=== PATIENT | female | born 1960 | race Caucasian/White ===

== ENCOUNTER 2017-05-23 15:26 | Outpatient (CLI) | payer BC | END 2017-05-23 15:27 | disposition critical access hospital (66) | LOC: EMS 15:26 | PROVIDERS: ATTEND Surgery | DX: R50.9 Fever, unspecified (principal); G82.50 Quadriplegia, unspecified | CPT/HCPCS: A0425; A0429 ==

== ENCOUNTER 2017-05-23 16:01 | Inpatient (IN) | payer BC ==
[2017-05-23 17:16] LABS: BILIRUBIN,URINE NEGATIVE (NEGATIVE); GLUCOSE, URINE (UA) NEGATIVE (NEGATIVE); KETONES,URINE (UA) NEGATIVE (NEGATIVE); LEUKOCYTE ESTERASE, URINE LARGE (NEGATIVE); NITRITE,URINE NEGATIVE (NEGATIVE); OCCULT BLOOD,URINE LARGE (NEGATIVE); PROTEIN,URINE 30 mg/dL (NEGATIVE); UROBILINOGEN,URINE 0.2 (NORMAL) E.U./dL (NORMAL)
[2017-05-23 17:22] LABS: CLARITY,URINE CLOUDY (CLEAR)
[2017-05-23 17:25] LABS: SQUAMOUS EPITHELIAL CELL,UR FEW Squamous (<= Few)
[2017-05-23 17:26] LABS: BACTERIA,URINE Many /HPF (None Seen); CASTS, URINE 3-5 RBC Casts /LPF
[2017-05-23] MEDS ORDERED: ONDANSETRON 4 MG/2 ML VIAL IVP STA (17:27)
[2017-05-23] MEDS ORDERED: cefTRIAXone 1 GM in SODIUM CHLORIDE 0.9% MINIBAG 100 ML IV STA (17:27)
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
[2017-05-23 17:31] LABS: BASOPHILS % (AUTO) 0.2 %; EOSINOPHILS % (AUTO) 0.2 %; HGB - HEMOGLOBIN 10.1 g/dL (12.0-16.0); LYMPHOCYTES % (AUTO) 5.4 %; MEAN CORPUSCULAR HEMOGLOBIN 30.5 pg (27.0-31.0); MEAN CORPUSCULAR HGB CONC 33.9 g/dL (32.0-36.0); MEAN CORPUSCULAR VOLUME 89.8 fL (81.0-99.0); MEAN PLATELET VOLUME 9.2 fL (7.9-10.8); MONOCYTES % (AUTO) 5.3 %; NEUTROPHILS % (AUTO) 88.9 %; PLT - PLATELET COUNT 169 10^3/uL (130-450); RED CELL DISTRIBUTION WIDTH 14.3 % (12.0-15.0)
[2017-05-23] MEDS: SODIUM CHLORIDE 0.9% 1,000 ML IV ONE ×2 (17:40→20:09)
[2017-05-23 17:51] LABS: ALBUMIN 2.8 g/dL (3.2-5.5); ALBUMIN/GLOBULIN RATIO 0.8 (1.0-2.2); BILIRUBIN,TOTAL 1.5 mg/dL (0.2-1.0); CALCIUM 8.2 mg/dL (8.5-10.3); TOTAL PROTEIN 6.1 g/dL (6.7-8.2)
[2017-05-23] MEDS ORDERED: PANTOPRAZOLE 40 MG VIAL IVP STA (17:58)
[2017-05-23] MEDS ORDERED: SODIUM CHLORIDE FLUSH 0.9% 10 ML SYRINGE IVP PRN (18:03)
[2017-05-23] MEDS ORDERED: HEPARIN 5,000 UNIT/ML VIAL SUBQ SCH (21:00)
[2017-05-23] MEDS: SODIUM CHLORIDE FLUSH 0.9% 10 ML SYRINGE IVP SCH (21:21)
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
[2017-05-23] MEDS: cefTAZidime 2 GM in SODIUM CHLORIDE 0.9% MINIBAG 100 ML IV SCH (22:53)
[2017-05-23] MEDS: SODIUM CHLORIDE 1 GM TABLET PO SCH (22:53)
[2017-05-24] MEDS: NS W/20 MEQ KCL 1,000 ML IV SCH ×3 (02:13→21:08)
[2017-05-24] MEDS: SODIUM CHLORIDE 1 GM TABLET PO SCH ×3 (05:45→22:10)
[2017-05-24] MEDS: SODIUM CHLORIDE FLUSH 0.9% 10 ML SYRINGE IVP SCH ×4 (05:46→21:08)
[2017-05-24 06:38] LABS: BASOPHILS % (AUTO) 0.1 %; EOSINOPHILS # (AUTO) 0.1 10^3/uL (0.0-0.7); EOSINOPHILS % (AUTO) 0.6 %; HGB - HEMOGLOBIN 8.2 g/dL (12.0-16.0); LYMPHOCYTES # (AUTO) 0.7 10^3/uL (1.5-3.5); LYMPHOCYTES % (AUTO) 5.2 %; MEAN CORPUSCULAR HEMOGLOBIN 30.2 pg (27.0-31.0); MEAN CORPUSCULAR HGB CONC 33.2 g/dL (32.0-36.0); MEAN CORPUSCULAR VOLUME 91.2 fL (81.0-99.0); MEAN PLATELET VOLUME 8.8 fL (7.9-10.8); MONOCYTES # (AUTO) 0.9 10^3/uL (0.0-1.0); MONOCYTES % (AUTO) 6.4 %; NEUTROPHILS # (AUTO) 12.1 10^3/uL (1.5-6.6); NEUTROPHILS % (AUTO) 87.7 %; PLT - PLATELET COUNT 158 10^3/uL (130-450); RED BLOOD COUNT 2.72 10^6/uL (4.20-5.40); RED CELL DISTRIBUTION WIDTH 14.7 % (12.0-15.0); WHITE BLOOD COUNT 13.8 x10^3/uL (4.8-10.8)
[2017-05-24 06:52] LABS: ALBUMIN 2.5 g/dL (3.2-5.5); ALBUMIN/GLOBULIN RATIO 0.9 (1.0-2.2); BILIRUBIN,TOTAL 1.1 mg/dL (0.2-1.0); CALCIUM 8.1 mg/dL (8.5-10.3); CREATININE 1.9 mg/dL (0.4-1.0); MAGNESIUM 1.6 mg/dL (1.7-2.8); PHOSPHORUS 2.4 mg/dL (2.5-4.6); TOTAL PROTEIN 5.3 g/dL (6.7-8.2)
[2017-05-24] MEDS ORDERED: FAMOTIDINE 20 MG TABLET PO SCH (09:00)
[2017-05-24] MEDS ORDERED: POLYETHYLENE GLYCOL 3350 17 GM PACKET PO SCH ×2 (09:00)
[2017-05-24] MEDS: cefTAZidime 2 GM in SODIUM CHLORIDE 0.9% MINIBAG 100 ML IV SCH ×2 (09:39→22:10)
[2017-05-24] MEDS ORDERED: IOPAMIDOL-300 50 ML VIAL ONE (10:20)
[2017-05-24 10:50] LABS: INR 1.2 (0.8-1.2); PT - PROTHROMBIN TIME 13.1 secs (9.9-12.6)
[2017-05-24] MEDS: NYSTATIN CREAM 15 GM TUBE TOP SCH ×2 (11:07→20:55)
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
[2017-05-24] MEDS ORDERED: PANTOPRAZOLE 80 MG in SODIUM CHLORIDE 0.9% 100ML 100 ML IV ONE (12:50)
[2017-05-24] MEDS ORDERED: PANTOPRAZOLE 80 MG in SODIUM CHLORIDE 0.9% 100ML 100 ML IV SCH (13:13)
[2017-05-24 13:38] LABS: HGB - HEMOGLOBIN 8.9 g/dL (12.0-16.0)
[2017-05-24] MEDS ORDERED: SODIUM CHLORIDE 0.9% 500 ML IV ONE (14:00)
--- NOTE | 2017-05-24 14:11 | CT Report ---
EXAM: CT ABDOMEN AND PELVIS IV CONTRAST EXAM DATE: 05/24/2017. CLINICAL HISTORY: Abdominal pain. Elevated liver function tests. Maroon stools. COMPARISONS: None. TECHNIQUE: Routine helical CT imaging was performed through the abdomen and pelvis. IV contrast: None . Enteric contrast: None. Reconstructions: Coronal and sagittal. In accordance with CT protocol optimization, one or more of the following dose reduction techniques w ere utilized for this exam: automated exposure control, adjustment of mA and/or KV based on patient s ize, or use of iterative reconstructive technique. FINDINGS: Lung Bases: Fluid opacities with air bronchograms in the right middle lobe, in the left lower lobe, a nkle fluid opacities in the right lower lobe. Small bilateral pleural effusions. No pericardial effus ion. Liver: Normal. No masses. Gallbladder/Bile Ducts: Not visualized. No bile duct dilatation. Spleen: Normal. Pancreas: Normal. Adrenal Glands: Normal. Kidneys: Left kidney is slightly enlarged and there is infiltration of the left perirenal fat. There is also edema adjacent to the proximal left ureter. No urinary tract dilatation. No calculi demonstra silvano. Peritoneal Cavity/Bowel: No bowel dilatation. Mild infiltration of the fat adjacent to the splenic fl exure. Small amount of fluid in the left paracolic gutter extending into the left pelvis. The appendi x appears normal. No adenopathy. No free air. Pelvic Organs: Catheter in nondistended urinary bladder. Small amount of gas in the bladder for the p resence of the catheter. The uterus is normal in size. No adenopathy. Vasculature: Minimal atherosclerosis of the left common iliac artery. Otherwise normal. Bones: Degenerative changes of the spine. Bridging osteophytes at multiple levels of the lower thorac ic and lumbar spine consistent with diffuse idiopathic skeletal hypertrophy. 17 mm bone island in the left sacrum. Intramedullary abhishek in the proximal femur bilaterally. IMPRESSION: Bilateral lower lung infiltrates, most likely pneumonia. Small bilateral pleural effusions. Enlarged left kidney with edema adjacent to the kidney and proximal left ureter. Findings could be se condary to a recently passed ureteral calculus or pyelonephritis. Infiltration of the fat adjacent to the splenic flexure of the colon and small amount of fluid in the left paracolic gutter which could be secondary to colonic inflammatory disease. The gallbladder is either markedly collapsed or absent. Pastor catheter in the urinary bladder. Other findings as described in the report. [facility] Referring Provider Line: [phone] SITE ID: [id number]
--- NOTE | 2017-05-24 15:45 | XRAY Preliminary Report ---
Exam: XR CHEST 2 VIEW PA/LAT IMPRESSION: Small bilateral pleural effusions and moderate bibasilar atelectasis. Mild cardiomegaly. [facility] SITE ID: [id number]
--- NOTE | 2017-05-24 15:48 | XRAY Report ---
EXAM: CHEST RADIOGRAPHY EXAM DATE: 05/24/2017 01:11 PM. CLINICAL HISTORY: Weakness, anemia. COMPARISON: Limited comparison made with abdomen CT from today. TECHNIQUE: 2 views. FINDINGS: Lungs/Pleura: Respiratory motion artifact degrades lateral view. Moderate bibasilar atelectasis. Smal l bilateral pleural effusions. No pneumothorax Mediastinum: Mild cardiomegaly. Other: Moderate degenerative disk disease of the thoracolumbar spine IMPRESSION: Small bilateral pleural effusions and moderate bibasilar atelectasis. Mild cardiomegaly. [facility] Referring Provider Line: [phone] SITE ID: [id number]
--- NOTE | 2017-05-24 17:48 | PROVIDER PROGRESS NOTE ---
Assessment/Plan - Problem List (1) Dehydration Assessment/Plan: Oral mucosa moist but BP was low intermittently today and Pt got a fluid bolus of 500cc NS Continuue to monitor electrolytes, Mg and VS (2) Hyponatremia Assessment/Plan: Pt on iv D5NS with K and rate increased to 125/hr plus got a saline 500 cc bolus , plus getting salt tablets po She is less confused, as per the description in ED Continue to follow Labs Echo ordered and still pending to eval LVEF for CHF. Given low Na and pedal edema, she may have a low LVEF (3) GI bleeding Qualifiers: GI bleed type/associated pathology: unspecified gastrointestinal hemorrhage type Qualified Code(s): K92.2 - Gastrointestinal hemorrhage, unspecified Assessment/Plan: After 1-2 large maroon stools, no further BMs. Hgb dropped from 10 to 8 then kiersten to 8.9 Will have blood available, ordered a cross-match, reday for a transfusion if needed PPI ordered, sq Heparin stopped Liquid diet started in preparation for EGD Dr Gabriel saw Pt for EGD and possible colonoscopy, but awaiting colonoscopy report from 2 years ago at another facility (4) Urinary tract infection Qualifiers: Urinary tract infection type: catheter-associated UTI Indwelling urinary catheter type: indwelling urethral catheter Encounter type: initial encounter Qualified Code(s): T83.511A - Infection and inflammatory reaction due to indwelling urethral catheter, initial encounter; N39.0 - Urinary tract infection , site not specified; N39.0 - Urinary tract infection, site not specified Assessment/Plan: No growth on urine culture yet Pt on empiric iv antibiotics Continue present plan (5) Quadriplegia, C5-C7 incomplete Assessment/Plan: Stable neuro status for 40 years, requires a chronic indwelling urinary bladder catheter - Current Meds Current Meds: Current Medications Generic Name Dose Route Start Last Admin Trade Name Freq PRN Reason Stop Dose Admin Ceftazidime 2 gm/ Sodium 100 mls @ 100 mls/hr 05/23/17 22:00 05/24/17 11:07 Chloride IV Infused Q12H AMY Infusion Potassium Chloride/Sodium Chloride 1,000 mls @ 125 mls/hr 05/23/17 23:00 14:42 Normal Saline 0.9% W/20 Meq Kcl IV 125 mls/hr .Q8H AMY Administration Nystatin 1 applic 05/24/17 09:00 05/24/17 11:07 Mycostatin Cream TOP Not Given BID AMY Sodium Chloride 1 gm 05/23/17 22:00 05/24/17 13:49 Salt Tab PO 1 gm TID AMY Administration Sodium Chloride 10 ml 05/24/17 06:00 05/24/17 13:26 Normal Saline Flush 0.9% IVP 10 ml Q8HR AMY Administration - Lab Result Fish Bone Diagrams: 05/24/17 13:10 05/24/17 06:18 - Additional Planning My Orders: My Active Orders 05/24/17 RBC, LEUKOREDUCED Routine TYPE AND SCREEN Routine 05/24/17 06:18 HEPATITIS ACUTE PANEL W CONF [REFLAB] Routine 05/24/17 21:00 Pantoprazole [Protonix] 40 mg IV BID 05/24/17 Dinner DIET [Clear Liquid Diet] [DIET] 05/25/17 05:00 BMP - BASIC METABOLIC PANEL [CHEM] DAILYLAB CBC - COMP BLD CT W/AUTO DIFF [HEME] DAILYLAB LIVER PANEL [CHEM] DAILYLAB MAGNESIUM [CHEM] DAILYLAB Subjective - Subjective Patient Reports: Feeling Better, Resting Comfortably, No Complaints Objective Vital Signs: Vital Signs - 24 hr 05/23/17 05/23/17 05/24/17 18:15 20:42 00:24 Temperature 36.8 C 37.4 C Heart Rate 82 Heart Rate [ 76 80 Brachial] Respiratory 20 24 22 Rate Blood Pressure 104/66 Blood Pressure 165/89 H 138/85 H [Left Brachial artery] O2 Saturation 100 98 100 05/24/17 05/24/17 05/24/17 07:55 14:00 16:11 Temperature 37.6 C H 37.1 C 37.6 C H Heart Rate Heart Rate [ 86 73 72 Brachial] Respiratory 14 18 19 Rate Blood Pressure Blood Pressure 95/46 L 108/38 L 96/42 L [Left Brachial artery] O2 Saturation 96 97 95 Oxygen O2 Source Room air I&O (Last 24 Hrs): Intake and Output Totals x24h 05/22/17 05/23/17 05/24/17 23:59 23:59 23:59 Intake Total 1100 3590 Output Total 200 2250 Balance 900 1340 General: Alert, Oriented x3 HEENT: Mucous membr. moist/pink Neck: Supple, No JVD Neuro: Other (Quadriplegic from axillae down) Abdomen: Soft Extremities: Other (1+ pedal edema) - Results Results: Laboratory Results WBC 13.8 x10^3/uL (4.8-10.8) H 05/24/17 06:18 RBC 2.72 10^6/uL (4.20-5.40) L 05/24/17 06:18 Hgb 8.9 g/dL (12.0-16.0) L 05/24/17 13:10 Hct 25.9 % (37.0-47.0) L 05/24/17 13:10 MCV 91.2 fL (81.0-99.0) 05/24/17 06:18 MCH 30.2 pg (27.0-31.0) 05/24/17 06:18 MCHC 33.2 g/dL (32.0-36.0) 05/24/17 06:18 RDW 14.7 % (12.0-15.0) 05/24/17 06:18 Plt Count 158 10^3/uL (130-450) 05/24/17 06:18 MPV 8.8 fL (7.9-10.8) 05/24/17 06:18 Neut # 12.1 10^3/uL (1.5-6.6) H 05/24/17 06:18 Lymph # 0.7 10^3/uL (1.5-3.5) L 05/24/17 06:18 [place] # 0.9 10^3/uL (0.0-1.0) 05/24/17 06:18 Eos # 0.1 10^3/uL (0.0-0.7) 05/24/17 06:18 Baso # 0.0 10^3/uL (0.0-0.1) 05/24/17 06:18 Absolute Nucleated RBC 0.00 x10^3/uL 05/24/17 06:18 Nucleated RBC % 0.0 /100WBC 05/24/17 06:18 PT 13.1 secs (9.9-12.6) H 05/24/17 10:37 INR 1.2 (0.8-1.2) 05/24/17 10:37 Sodium 125 mmol/L (135-145) L 05/24/17 06:18 Potassium 3.6 mmol/L (3.5-5.0) 05/24/17 06:18 Chloride 93 mmol/L (101-111) L 05/24/17 06:18 Carbon Dioxide 21 mmol/L (21-32) 05/24/17 06:18 Anion Gap 11.0 (6-13) 05/24/17 06:18 BUN 60 mg/dL (6-20) H 05/24/17 06:18 Creatinine 1.9 mg/dL (0.4-1.0) H 05/24/17 06:18 Estimated GFR (MDRD) 27 (>89) L 05/24/17 06:18 Glucose 105 mg/dL (70-100) H 05/24/17 06:18 Calcium 8.1 mg/dL (8.5-10.3) L 05/24/17 06:18 Phosphorus 2.4 mg/dL (2.5-4.6) L 05/24/17 06:18 Magnesium 1.6 mg/dL (1.7-2.8) L 05/24/17 06:18 Total Bilirubin 1.1 mg/dL (0.2-1.0) H 05/24/17 06:18 AST 102 IU/L (10-42) H 05/24/17 06:18 ALT 65 IU/L (10-60) H 05/24/17 06:18 Alkaline Phosphatase 82 IU/L (42-121) 05/24/17 06:18 Troponin I 0.09 ng/mL (<0.49) 05/23/17 17:03 Total Protein 5.3 g/dL (6.7-8.2) L 05/24/17 06:18 Albumin 2.5 g/dL (3.2-5.5) L 05/24/17 06:18 Globulin 2.8 g/dL (2.1-4.2) 05/24/17 06:18 Albumin/Globulin Ratio 0.9 (1.0-2.2) L 05/24/17 06:18 Lipase 11 U/L (22-51) L 05/23/17 17:03 Urine Color YELLOW 05/23/17 17:05 Urine Clarity CLOUDY (CLEAR) 05/23/17 17:05 Urine pH 6.0 PH (5.0-7.5) 05/23/17 17:05 Ur Specific [place] 1.010 (1.002-1.030) 05/23/17 17:05 Urine Protein 30 mg/dL (NEGATIVE) H 05/23/17 17:05 Urine Glucose (UA) NEGATIVE mg/dL (NEGATIVE) 05/23/17 17:05 Urine Ketones NEGATIVE mg/dL (NEGATIVE) 05/23/17 17:05 Urine Occult Blood LARGE (NEGATIVE) H 05/23/17 17:05 Urine Nitrite NEGATIVE (NEGATIVE) 05/23/17 17:05 Urine Bilirubin NEGATIVE (NEGATIVE) 05/23/17 17:05 Urine Urobilinogen 0.2 (NORMAL) E.U./dL (NORMAL) 05/23/17 17:05 Ur Leukocyte Esterase LARGE (NEGATIVE) H 05/23/17 17:05 Urine RBC 11-25 /HPF (0-5) H 05/23/17 17:05 Urine WBC >25 /HPF (0-5) H 05/23/17 17:05 Ur Squamous Epith Cells FEW Squamous (<= Few) 05/23/17 17:05 Urine Bacteria Many /HPF (None Seen) H 05/23/17 17:05 Urine Casts 3-5 RBC Casts /LPF 05/23/17 17:05 Ur Microscopic Review INDICATED 05/23/17 17:05 Urine Culture Comments INDICATED 05/23/17 17:05 Blood Type O POSITIVE 05/23/17 17:03 Blood Type Recheck O POSITIVE 05/24/17 11:05 Antibody Screen NEGATIVE 05/23/17 17:03 Crossmatch IS Only See Detail 05/23/17 17:03
[2017-05-24] MEDS: PANTOPRAZOLE 40 MG VIAL IV SCH (21:08)
[2017-05-24] MEDS: SODIUM CHLORIDE FLUSH 0.9% 10 ML SYRINGE IVP PRN (21:08)
[2017-05-24] MEDS: ACETAMINOPHEN 325 MG TABLET PO PRN (23:47)
[2017-05-24] MEDS: TEMAZEPAM 15 MG CAPSULE PO PRN (23:47)
[2017-05-25] MEDS: NS W/20 MEQ KCL 1,000 ML IV SCH ×2 (05:13→08:29)
[2017-05-25 06:03] LABS: BASOPHILS % (AUTO) 0.1 %; EOSINOPHILS % (AUTO) 0.5 %; HGB - HEMOGLOBIN 7.8 g/dL (12.0-16.0); LYMPHOCYTES # (AUTO) 1.2 10^3/uL (1.5-3.5); LYMPHOCYTES % (AUTO) 13.5 %; MEAN CORPUSCULAR HEMOGLOBIN 30.5 pg (27.0-31.0); MEAN CORPUSCULAR HGB CONC 33.6 g/dL (32.0-36.0); MEAN PLATELET VOLUME 8.6 fL (7.9-10.8); MONOCYTES # (AUTO) 0.8 10^3/uL (0.0-1.0); NEUTROPHILS # (AUTO) 6.6 10^3/uL (1.5-6.6); NEUTROPHILS % (AUTO) 76.9 %; PLT - PLATELET COUNT 151 10^3/uL (130-450); RED BLOOD COUNT 2.55 10^6/uL (4.20-5.40); RED CELL DISTRIBUTION WIDTH 14.9 % (12.0-15.0); WHITE BLOOD COUNT 8.6 x10^3/uL (4.8-10.8)
[2017-05-25 06:21] LABS: ALBUMIN 2.3 g/dL (3.2-5.5); BILIRUBIN,DIRECT 0.2 mg/dL (0.1-0.5); BILIRUBIN,TOTAL 0.7 mg/dL (0.2-1.0); CALCIUM 7.9 mg/dL (8.5-10.3); CREATININE 1.3 mg/dL (0.4-1.0); TOTAL PROTEIN 5.3 g/dL (6.7-8.2)
[2017-05-25] MEDS: SODIUM CHLORIDE 1 GM TABLET PO SCH ×2 (06:40→06:41)
[2017-05-25] MEDS: SODIUM CHLORIDE FLUSH 0.9% 10 ML SYRINGE IVP SCH ×3 (06:41→22:35)
[2017-05-25] MEDS: PANTOPRAZOLE 40 MG VIAL IV SCH ×2 (08:47→22:31)
[2017-05-25] MEDS: NYSTATIN CREAM 15 GM TUBE TOP SCH ×2 (08:48→22:25)
[2017-05-25] MEDS: SODIUM CHLORIDE FLUSH 0.9% 10 ML SYRINGE IVP PRN (08:54)
[2017-05-25] MEDS ORDERED: SODIUM CHLORIDE 0.9% 500 ML IV ONE (09:09)
[2017-05-25] MEDS: cefTAZidime 2 GM in SODIUM CHLORIDE 0.9% MINIBAG 100 ML IV SCH ×2 (11:29→22:24)
--- NOTE | 2017-05-25 13:37 | PROVIDER PROGRESS NOTE ---
Subjective - General Admit Date: 05/23/17 Procedure Date: 05/26/17 Post Op Days: 1 Procedure Performed: Planned EGD and colonoscopy. - Review of Systems General: positive: No symptoms HEENT: positive: No symptoms Pulmonary: positive: No symptoms Cardiovascular: positive: No symptoms Gastrointestinal: positive: No symptoms Genitourinary: positive: No symptoms Musculoskeletal: positive: Other (Qadriplegic with limited use of her arms L>R) Skin: positive: No symptoms Psychiatric: positive: No symptoms All Other Systems: positive: Reviewed and negative Objective - Patient Data Reviewed Vital Signs: Yes Vital Signs: Vital Signs x48h Temp Pulse Pulse Resp BP BP Pulse Ox 05/25/17 12:30 18 102/60 94 05/25/17 11:20 36.7 C 72 18 108/80 05/25/17 10:09 36.5 C 72 26 H 96/54 L 05/25/17 09:46 36.7 C 71 18 104/58 L 05/25/17 09:19 36.7 C 72 28 H 98/71 05/25/17 09:00 72 16 97/60 96 Weight: Weight 05/23/17 05/24/17 05/25/17 23:59 23:59 23:59 Weight (kg) 97.5 kg Intake & Output: Intake and Output Totals x24h 05/23/17 05/24/17 05/25/17 23:59 23:59 23:59 Intake Total 1100 4844.167 2902.75 Output Total 200 3150 1550 Balance 900 9451.297 3719.75 - Lab Results Lab Results: 05/25/17 05:49 05/25/17 05:49 Other Lab Results: Lab Results x24hrs 05/25/17 05/25/17 05/24/17 Range/Units 05:49 05:49 13:10 WBC 8.6 (4.8-10.8) x10^3/uL RBC 2.55 L (4.20-5.40) 10^6/uL Hgb 7.8 L 8.9 L (12.0-16.0) g/dL Hct 23.2 L 25.9 L (37.0-47.0) % MCV 91.0 (81.0-99.0) fL MCH 30.5 (27.0-31.0) pg MCHC 33.6 (32.0-36.0) g/dL RDW 14.9 (12.0-15.0) % Plt Count 151 (130-450) 10^3/uL MPV 8.6 (7.9-10.8) fL Neut # 6.6 (1.5-6.6) 10^3/uL Lymph # 1.2 L (1.5-3.5) 10^3/uL [place] # 0.8 (0.0-1.0) 10^3/uL Eos # 0.0 (0.0-0.7) 10^3/uL Baso # 0.0 (0.0-0.1) 10^3/uL Absolute Nucleated RBC 0.00 x10^3/uL Nucleated RBC % 0.0 /100WBC Sodium 137 (135-145) mmol/L Potassium 3.5 (3.5-5.0) mmol/L Chloride 111 (101-111) mmol/L Carbon Dioxide 21 (21-32) mmol/L Anion Gap 5.0 L (6-13) BUN 39 H (6-20) mg/dL Creatinine 1.3 H (0.4-1.0) mg/dL Estimated GFR (MDRD) 42 L (>89) Glucose 95 (70-100) mg/dL Calcium 7.9 L (8.5-10.3) mg/dL Magnesium 2.0 (1.7-2.8) mg/dL Total Bilirubin 0.7 (0.2-1.0) mg/dL Direct Bilirubin 0.2 (0.1-0.5) mg/dL AST 49 H (10-42) IU/L ALT 48 (10-60) IU/L Alkaline Phosphatase 82 (42-121) IU/L Total Protein 5.3 L (6.7-8.2) g/dL Albumin 2.3 L (3.2-5.5) g/dL Globulin 3.0 (2.1-4.2) g/dL - Current Medications Current Medications: Current Medications Generic Name Dose Route Start Last Admin Trade Name Freq PRN Reason Stop Dose Admin Acetaminophen 650 mg 05/23/17 18:03 05/24/17 23:47 Tylenol PO 650 mg Q4HR PRN Administration Pain 1 to 4 Ceftazidime 2 gm/ Sodium 100 mls @ 100 mls/hr 05/23/17 22:00 05/25/17 12:29 Chloride IV Infused Q12H AMY Infusion Potassium Chloride/Sodium Chloride 1,000 mls @ 75 mls/hr 05/25/17 08:02 05/25 09:20 Normal Saline 0.9% W/20 Meq Kcl IV 0 mls/hr .[id number] AMY Infusion Nystatin 1 applic 05/24/17 09:00 05/25/17 08:48 Mycostatin Cream TOP 1 applic BID AMY Administration Pantoprazole Sodium 40 mg 05/24/17 21:00 05/25/17 08:47 Protonix IV 40 mg BID AMY Administration Sodium Chloride 10 ml 05/24/17 05:48 05/25/17 08:54 Normal Saline Flush 0.9% IVP 10 ml PRN PRN Administration NEEDED PER PROVIDER ORDERS Sodium Chloride 10 ml 05/24/17 06:00 05/25/17 11:31 Normal Saline Flush 0.9% IVP 10 ml Q8HR AMY Administration Temazepam 15 mg 05/24/17 23:32 05/24/17 23:47 Restoril PO 15 mg QPM PRN Administration Insomnia - Physical Exam General Appearance: positive: No acute distress Eyes Bilateral: positive: No lid inflammation, Conjunctivae nml, No scleral icterus Neck: positive: Trachea midline Respiratory: positive: Chest non-tender, No respiratory distress, Breath sounds nml Cardiovascular: positive: Regular rate & rhythm Abdomen: positive: Non-tender (Again patient does not feel abdominal pain usually.) Skin: positive: Color nml Extremities: positive: Other (Flacid lower extremities.) Neurologic/Psychiatric: positive: Oriented x3 Impression/Plan - Problem List Problem List: Anemia secondary to gastrointestinal bleeding Esophagogastroduodenoscopy and colonoscopy with possible biopsies and/or polypectomies. Indications, procedure, alternatives (such as barium studies ( upper or lower), Cologuard (lower) and even no procedure at all) and risks including but not limited to perforation requiring operative repair, bleeding with its risks, and were fully explained to her. Conscious sedation was discussed at length with her as were its risks including but not limited to loss of airway, aspiration, respiratory depression, and not enough relief of pain and anxiety and she indicated that she wished to have conscious sedation for her procedure. I explained that her posterior oropharynx would also be anesthetized for the procedure. I explained that MAC anesthesia is associated with a higher incidence of intestinal perforation. Review of her history does not reveal any significant systemic disease that would contraindicate use of conscious sedation or MAC anesthesia. All questions were fully answered. Verbal and written consent was obtained. The patient in preparation for her esophagogastroduodenoscopy and colonoscopy will be n.p.o. and her colon will be mechanically prepped. 45 minutes of [id number] time spent with the patient the majority of which was spent in discussion
--- NOTE | 2017-05-25 14:47 | PROVIDER PROGRESS NOTE ---
Assessment/Plan - Problem List (1) Dehydration Assessment/Plan: Improving electrolytes BP dropped but with a drop in H/H, she is probably no longer dehydrated but needs blood transfusion (2) Hyponatremia Assessment/Plan: Resolved. Will stop po salt tablets (3) GI bleeding Qualifiers: GI bleed type/associated pathology: unspecified gastrointestinal hemorrhage type Qualified Code(s): K92.2 - Gastrointestinal hemorrhage, unspecified Assessment/Plan: Further drip on H/H today along with postural hypotension, requiring trandelenburg bed position for several hours No large bloody BM today, but probable further GI bleeding Will transfuse 2U PRBCs and recheck H/H later today along with daily am CBC checks No colonoscopy report was obtained from [facility]. Dr Gabriel saw Pt today and is planning EGD and colonoscopy tomorrow. (4) Urinary tract infection Qualifiers: Urinary tract infection type: catheter-associated UTI Indwelling urinary catheter type: indwelling urethral catheter Encounter type: initial encounter Qualified Code(s): T83.511A - Infection and inflammatory reaction due to indwelling urethral catheter, initial encounter; N39.0 - Urinary tract infection , site not specified; N39.0 - Urinary tract infection, site not specified Assessment/Plan: Pt had a fever, Tylenol given Continue iv antibiotics for UTI Await cultures (5) Quadriplegia, C5-C7 incomplete Assessment/Plan: Stable (6) Fall Assessment/Plan: Pt cannot feel any pain below axillae Will XRay both knees for traumatic fracture or dislocation, etc - Current Meds Current Meds: Current Medications Generic Name Dose Route Start Last Admin Trade Name Freq PRN Reason Stop Dose Admin Acetaminophen 650 mg 05/23/17 18:03 05/24/17 23:47 Tylenol PO 650 mg Q4HR PRN Administration Pain 1 to 4 Ceftazidime 2 gm/ Sodium 100 mls @ 100 mls/hr 05/23/17 22:00 05/25/17 12:29 Chloride IV Infused Q12H AMY Infusion Potassium Chloride/Sodium Chloride 1,000 mls @ 75 mls/hr 05/25/17 08:02 05/25 09:20 Normal Saline 0.9% W/20 Meq Kcl IV 0 mls/hr .[id number] AMY Infusion Nystatin 1 applic 05/24/17 09:00 05/25/17 08:48 Mycostatin Cream TOP 1 applic BID AMY Administration Pantoprazole Sodium 40 mg 05/24/17 21:00 05/25/17 08:47 Protonix IV 40 mg BID AMY Administration Sodium Chloride 10 ml 05/24/17 05:48 05/25/17 08:54 Normal Saline Flush 0.9% IVP 10 ml PRN PRN Administration NEEDED PER PROVIDER ORDERS Sodium Chloride 10 ml 05/24/17 06:00 05/25/17 11:31 Normal Saline Flush 0.9% IVP 10 ml Q8HR AMY Administration Temazepam 15 mg 05/24/17 23:32 05/24/17 23:47 Restoril PO 15 mg QPM PRN Administration Insomnia - Lab Result Fish Bone Diagrams: 05/25/17 05:49 05/25/17 05:49 - Additional Planning My Orders: My Active Orders 05/24/17 17:57 Nutrition Consult [CONS] Routine 05/24/17 21:00 Pantoprazole [Protonix] 40 mg IV BID 05/24/17 Dinner DIET [Clear Liquid Diet] [DIET] 05/25/17 Knee 2 View BILAT [XR] Routine 05/25/17 07:57 Transfuse RBCs Leukoreduced [RC] .ONCE 05/25/17 08:02 Ns W/20 Meq KCl [Normal Saline 0.9% W/20 Meq KCl] 1,000 ml IV 75 mls/hr 05/25/17 18:00 HEMOGLOBIN AND HEMATOCRIT [HEME] Timed 05/26/17 05:00 BMP - BASIC METABOLIC PANEL [CHEM] DAILYLAB CBC - COMP BLD CT W/AUTO DIFF [HEME] DAILYLAB Subjective - Subjective Patient Reports: Feeling Better, Other (Pt remembers that she fell out of her wheelchair while in the shower and landed on her knees 1 week ago, caregiver lifted her up and there was no bruising, but she never had Xrays to check for fracture, etc.) Nursing Reports: Other (This am, when HOB elevated, BP dropped to 70's and Pt felt groggy w/ alot of yawning) Objective Vital Signs: Vital Signs - 24 hr 05/24/17 05/24/17 05/25/17 16:11 23:27 02:08 Temperature 37.6 C H 38.0 C H 37.1 C Heart Rate Heart Rate [ 72 94 Brachial] Respiratory 19 20 Rate Blood Pressure Blood Pressure 96/42 L 118/78 [Left Brachial artery] O2 Saturation 95 96 05/25/17 05/25/17 05/25/17 09:00 09:19 09:46 Temperature 36.7 C 36.7 C Heart Rate 72 71 Heart Rate [ 72 Brachial] Respiratory 16 28 H 18 Rate Blood Pressure 98/71 104/58 L Blood Pressure 97/60 [Left Brachial artery] O2 Saturation 96 05/25/17 05/25/17 05/25/17 10:09 11:20 12:30 Temperature 36.5 C 36.7 C Heart Rate 72 72 Heart Rate [ Brachial] Respiratory 26 H 18 18 Rate Blood Pressure 96/54 L 108/80 Blood Pressure 102/60 [Left Brachial artery] O2 Saturation 94 05/25/17 05/25/17 13:35 13:50 Temperature 36.7 C 36.7 C Heart Rate 65 69 Heart Rate [ Brachial] Respiratory 24 24 Rate Blood Pressure 114/95 H 101/68 Blood Pressure [Left Brachial artery] O2 Saturation Oxygen O2 Source Room air I&O (Last 24 Hrs): Intake and Output Totals x24h 05/23/17 05/24/17 05/25/17 23:59 23:59 23:59 Intake Total 1100 4844.167 3252.75 Output Total 200 3150 2200 Balance 900 7497.012 4752.75 General: Alert, Oriented x3 HEENT: Mucous membr. moist/pink Neck: Supple Neuro: Other (C6 incomplete quadriplegia) Cardiovascular: Regular rate Respiratory: No respiratory distress Abdomen: Soft Extremities: No edema - Results Results: Laboratory Results WBC 8.6 x10^3/uL (4.8-10.8) 05/25/17 05:49 RBC 2.55 10^6/uL (4.20-5.40) L 05/25/17 05:49 Hgb 7.8 g/dL (12.0-16.0) L 05/25/17 05:49 Hct 23.2 % (37.0-47.0) L 05/25/17 05:49 MCV 91.0 fL (81.0-99.0) 05/25/17 05:49 MCH 30.5 pg (27.0-31.0) 05/25/17 05:49 MCHC 33.6 g/dL (32.0-36.0) 05/25/17 05:49 RDW 14.9 % (12.0-15.0) 05/25/17 05:49 Plt Count 151 10^3/uL (130-450) 05/25/17 05:49 MPV 8.6 fL (7.9-10.8) 05/25/17 05:49 Neut # 6.6 10^3/uL (1.5-6.6) 05/25/17 05:49 Lymph # 1.2 10^3/uL (1.5-3.5) L 05/25/17 05:49 [place] # 0.8 10^3/uL (0.0-1.0) 05/25/17 05:49 Eos # 0.0 10^3/uL (0.0-0.7) 05/25/17 05:49 Baso # 0.0 10^3/uL (0.0-0.1) 05/25/17 05:49 Absolute Nucleated RBC 0.00 x10^3/uL 05/25/17 05:49 Nucleated RBC % 0.0 /100WBC 05/25/17 05:49 PT 13.1 secs (9.9-12.6) H 05/24/17 10:37 INR 1.2 (0.8-1.2) 05/24/17 10:37 Sodium 137 mmol/L (135-145) 05/25/17 05:49 Potassium 3.5 mmol/L (3.5-5.0) 05/25/17 05:49 Chloride 111 mmol/L (101-111) 05/25/17 05:49 Carbon Dioxide 21 mmol/L (21-32) 05/25/17 05:49 Anion Gap 5.0 (6-13) L 05/25/17 05:49 BUN 39 mg/dL (6-20) H 05/25/17 05:49 Creatinine 1.3 mg/dL (0.4-1.0) H 05/25/17 05:49 Estimated GFR (MDRD) 42 (>89) L 05/25/17 05:49 Glucose 95 mg/dL (70-100) 05/25/17 05:49 Calcium 7.9 mg/dL (8.5-10.3) L 05/25/17 05:49 Phosphorus 2.4 mg/dL (2.5-4.6) L 05/24/17 06:18 Magnesium 2.0 mg/dL (1.7-2.8) 05/25/17 05:49 Total Bilirubin 0.7 mg/dL (0.2-1.0) 05/25/17 05:49 Direct Bilirubin 0.2 mg/dL (0.1-0.5) 05/25/17 05:49 AST 49 IU/L (10-42) H 05/25/17 05:49 ALT 48 IU/L (10-60) 05/25/17 05:49 Alkaline Phosphatase 82 IU/L (42-121) 05/25/17 05:49 Troponin I 0.09 ng/mL (<0.49) 05/23/17 17:03 Total Protein 5.3 g/dL (6.7-8.2) L 05/25/17 05:49 Albumin 2.3 g/dL (3.2-5.5) L 05/25/17 05:49 Globulin 3.0 g/dL (2.1-4.2) 05/25/17 05:49 Albumin/Globulin Ratio 0.9 (1.0-2.2) L 05/24/17 06:18 Lipase 11 U/L (22-51) L 05/23/17 17:03 Urine Color YELLOW 05/23/17 17:05 Urine Clarity CLOUDY (CLEAR) 05/23/17 17:05 Urine pH 6.0 PH (5.0-7.5) 05/23/17 17:05 Ur Specific [place] 1.010 (1.002-1.030) 05/23/17 17:05 Urine Protein 30 mg/dL (NEGATIVE) H 05/23/17 17:05 Urine Glucose (UA) NEGATIVE mg/dL (NEGATIVE) 05/23/17 17:05 Urine Ketones NEGATIVE mg/dL (NEGATIVE) 05/23/17 17:05 Urine Occult Blood LARGE (NEGATIVE) H 05/23/17 17:05 Urine Nitrite NEGATIVE (NEGATIVE) 05/23/17 17:05 Urine Bilirubin NEGATIVE (NEGATIVE) 05/23/17 17:05 Urine Urobilinogen 0.2 (NORMAL) E.U./dL (NORMAL) 05/23/17 17:05 Ur Leukocyte Esterase LARGE (NEGATIVE) H 05/23/17 17:05 Urine RBC 11-25 /HPF (0-5) H 05/23/17 17:05 Urine WBC >25 /HPF (0-5) H 05/23/17 17:05 Ur Squamous Epith Cells FEW Squamous (<= Few) 05/23/17 17:05 Urine Bacteria Many /HPF (None Seen) H 05/23/17 17:05 Urine Casts 3-5 RBC Casts /LPF 05/23/17 17:05 Ur Microscopic Review INDICATED 05/23/17 17:05 Urine Culture Comments INDICATED 05/23/17 17:05 Blood Type O POSITIVE 05/23/17 17:03 Blood Type Recheck O POSITIVE 05/24/17 11:05 Antibody Screen NEGATIVE 05/23/17 17:03 Crossmatch IS Only See Detail 05/23/17 17:03
--- NOTE | 2017-05-25 16:32 | XRAY Preliminary Report ---
Exam: XR KNEE 2 VIEW BILAT IMPRESSION: 1. Healed, internally fixed bilateral femoral fractures. 2. Cortical irregularity at the medial aspect of the proximal right tibial metaphysis may represent s equelae of prior trauma versus nondisplaced fracture. If patient cannot bear weight and/or there is c ontinuing clinical concern for nondisplaced fracture, consider further evaluation with CT. 3. Bilateral knee osteoarthritis, severe in the patellofemoral compartments. 4. Mild bilateral soft tissue edema. [facility] SITE ID: [id number]
--- NOTE | 2017-05-25 16:35 | XRAY Report ---
EXAMS: 1. Right Knee Radiography 2. Left Knee Radiography EXAM DATE:05/25/2017 03:44 PM. CLINICAL HISTORY:Fell on both knees, bilateral femur fractures. COMPARISON: None. TECHNIQUE: 2 views each. FINDINGS: Right Knee: Bones: Osteoporotic. Healed, internally fixed right femoral fracture with intramedullary abhishek and 3 di stal screws. Mild cortical irregularity at the medial aspect of the proximal right tibial metaphysis. No periprosthetic lucency to suggest loosening. Joints: Severe patellofemoral and mild medial and lateral compartment osteoarthritis Soft Tissues: Mild soft tissue edema Left Knee: Bones: Osteoporotic. Healed, internally fixed femoral fracture with intramedullary abhishek and 4 distal s crews. No periprosthetic lucency to suggest loosening. No displaced acute fractures Joints: Moderate medial and severe patellofemoral compartment osteoarthritis Soft Tissues: Mild soft tissue edema. IMPRESSION: 1. Healed, internally fixed bilateral femoral fractures. 2. Cortical irregularity at the medial aspect of the proximal right tibial metaphysis may represent s equelae of prior trauma versus nondisplaced fracture. If patient cannot bear weight and/or there is c ontinuing clinical concern for nondisplaced fracture, consider further evaluation with CT. 3. Bilateral knee osteoarthritis, severe in the patellofemoral compartments. 4. Mild bilateral soft tissue edema. [facility] Referring Provider Line: [phone] SITE ID: [id number]
[2017-05-25] MEDS: SODIUM/POTASSIUM/MAG SULFATES 354 ML PREP KIT PO SCH ×3 (18:00→23:41)
[2017-05-25 18:06] LABS: HGB - HEMOGLOBIN 10.8 g/dL (12.0-16.0)
[2017-05-26] MEDS: TEMAZEPAM 15 MG CAPSULE PO PRN ×2 (00:51→21:33)
[2017-05-26] MEDS: NS W/20 MEQ KCL 1,000 ML IV SCH (00:51)
[2017-05-26] MEDS: SODIUM/POTASSIUM/MAG SULFATES 354 ML PREP KIT PO SCH ×2 (03:58→04:07)
[2017-05-26] MEDS: SODIUM CHLORIDE FLUSH 0.9% 10 ML SYRINGE IVP SCH ×3 (05:38→21:35)
[2017-05-26 05:42] LABS: BASOPHILS % (AUTO) 0.2 %; EOSINOPHILS % (AUTO) 0.5 %; HGB - HEMOGLOBIN 10.9 g/dL (12.0-16.0); LYMPHOCYTES % (AUTO) 18.9 %; MEAN CORPUSCULAR HEMOGLOBIN 30.7 pg (27.0-31.0); MEAN CORPUSCULAR HGB CONC 33.9 g/dL (32.0-36.0); MEAN CORPUSCULAR VOLUME 90.7 fL (81.0-99.0); MEAN PLATELET VOLUME 8.7 fL (7.9-10.8); MONOCYTES % (AUTO) 10.2 %; NEUTROPHILS % (AUTO) 70.2 %; PLT - PLATELET COUNT 162 10^3/uL (130-450); RED BLOOD COUNT 3.54 10^6/uL (4.20-5.40); RED CELL DISTRIBUTION WIDTH 15.1 % (12.0-15.0); WHITE BLOOD COUNT 9.8 x10^3/uL (4.8-10.8)
[2017-05-26 05:46] LABS: CALCIUM 8.5 mg/dL (8.5-10.3)
[2017-05-26 05:50] LABS: ABNORMAL LYMPHS % (MANUAL) 0 %
[2017-05-26 06:30] LABS: BAND NEUTROPHILS % (MANUAL) 4 %; BASOPHILS # (MANUAL) 0.1 10^3/uL (0-0.1); BASOPHILS % (MANUAL) 1 %; DIFFERENTIAL COMMENT MANUAL DIFFERENTIAL; LYMPHOCYTES # (MANUAL) 2.4 10^3/uL (1.5-3.5); LYMPHOCYTES % (MANUAL) 21 %; MONOCYTES # (MANUAL) 0.4 10^3/uL (0.0-1.0); NEUTROPHILS % (MANUAL) 67 %; PLATELET ESTIMATE, MANUAL NORMAL (130-450,000) (NORMAL); PLATELET MORPHOLOGY NORMAL APPEARANCE (NORMAL); RBC MORPHOLOGY (MULTIPLE) NORMAL APPEARANCE (NORMAL)
[2017-05-26] MEDS: POTASSIUM CHLOR 10 MEQ/100 ML 10 MEQ/100 ML BAG IV SCH ×2 (08:15→09:20)
--- NOTE | 2017-05-26 09:20 | XRAY Preliminary Report ---
Exam: XR CHEST 1 VIEW IMPRESSION: Increased interstitial opacities compared to prior may reflect edema or atypical infectio n. [facility] SITE ID: [id number]
--- NOTE | 2017-05-26 09:23 | XRAY Report ---
EXAM: CHEST RADIOGRAPHY EXAM DATE: 05/26/2017 09:00 AM. CLINICAL HISTORY: Decreased breath sounds and increased O2 requirement. COMPARISON: 05/24/2017. TECHNIQUE: 1 view. FINDINGS: Lungs/Pleura: Diffuse bilateral mild interstitial opacities have increased compared to prior. Slightl y increased right basilar atelectasis compared to prior. Retrocardiac opacity similar to prior. Proba ble small bilateral pleural effusions. No pneumothorax. Mediastinum: The cardiac silhouette is mostly obscured but there appears to be similar mild to modera te enlargement. Other: None. IMPRESSION: Increased interstitial opacities compared to prior may reflect edema or atypical infectio n. [facility] Referring Provider Line: [phone] SITE ID: [id number]
[2017-05-26] MEDS ORDERED: LACTATED RINGERS 1,000 ML IV ONE (09:47)
[2017-05-26] MEDS ORDERED: MIDAZOLAM 2 MG/2 ML VIAL IVP ONE (10:00)
[2017-05-26] MEDS ORDERED: PROPOFOL 200 MG/20 ML VIAL IVP ONE (10:00)
[2017-05-26] MEDS ORDERED: LIDOCAINE-MPF 2% 5 ML VIAL IM ONE (10:00)
[2017-05-26] MEDS: PANTOPRAZOLE 40 MG VIAL IV SCH ×2 (11:19→21:35)
[2017-05-26] MEDS: SODIUM CHLORIDE FLUSH 0.9% 10 ML SYRINGE IVP PRN ×2 (11:21→13:18)
[2017-05-26] MEDS: cefTAZidime 2 GM in SODIUM CHLORIDE 0.9% MINIBAG 100 ML IV SCH ×2 (11:22→21:34)
[2017-05-26] MEDS ORDERED: FUROSEMIDE 20 MG/2 ML VIAL IVP SCH (13:00)
[2017-05-26] MEDS ORDERED: BUMETANIDE 1 MG/4 ML VIAL IVP ONE (13:10)
[2017-05-26] MEDS: NYSTATIN CREAM 15 GM TUBE TOP SCH ×2 (13:17→21:41)
[2017-05-26] MEDS: NYSTATIN 500000 UNITS/5 ML UDC PO SCH ×3 (14:21→21:40)
[2017-05-26] MEDS: LISINOPRIL 5 MG TABLET PO SCH (16:27)
--- NOTE | 2017-05-26 16:47 | PROVIDER PROGRESS NOTE ---
Assessment/Plan - Problem List (1) Dehydration Assessment/Plan: Resolved and now Pt is volume overloaded, seen on CXR with bilat. pleural effusions. (2) CHF (congestive heart failure) Qualifiers: Congestive heart failure type: combined Assessment/Plan: Pt is >2L positive in saline fluid balance since admission due to dehydration. She also received 2U PRBCs for anemia and hypotension yesterday. Today her drop in O2 sats parelleled her c/o SOB and CXR confirms volume excess. She has had 3 L fluid output after iv Bumex given this am. An Echo was ordered and shows an global cardiomyopathy with EF 40%. I discussed this new Dx with Pt and it's possible etiologies.There is a strong FH of CAD and heart disease. Will begin Coreg and KINDRA, she will need a W/U for CAD after stabilization. Today 's troponin was WNL. Admission troponin was elevated (but Pt had elevated creat then). (3) Hyponatremia Assessment/Plan: Resolved. This may be due to newly Dx CHF. Continue to monitor Na on new treatment for CHF. (4) GI bleeding Qualifiers: GI bleed type/associated pathology: unspecified gastrointestinal hemorrhage type Qualified Code(s): K92.2 - Gastrointestinal hemorrhage, unspecified Assessment/Plan: S/P EGD and colonoscopy today, awaiting final result details and recommendations from surgeon, but he did order a solid diet and Pt has an appetite. (5) Urinary tract infection Qualifiers: Urinary tract infection type: catheter-associated UTI Indwelling urinary catheter type: indwelling urethral catheter Encounter type: initial encounter Qualified Code(s): T83.511A - Infection and inflammatory reaction due to indwelling urethral catheter, initial encounter; N39.0 - Urinary tract infection , site not specified; N39.0 - Urinary tract infection, site not specified Assessment/Plan: On antibiotics. No growth on cultures. Continue iv antibiotics (6) Quadriplegia, C5-C7 incomplete Assessment/Plan: Stable (7) Fall Assessment/Plan: Fall occurred at home 2 weeks ago. No evidence of knee fracture or fluid by Xrays - Current Meds Current Meds: Current Medications Generic Name Dose Route Start Last Admin Trade Name Freq PRN Reason Stop Dose Admin Acetaminophen 650 mg 05/23/17 18:03 05/24/17 23:47 Tylenol PO 650 mg Q4HR PRN Administration Pain 1 to 4 Ceftazidime 2 gm/ Sodium 100 mls @ 100 mls/hr 05/23/17 22:00 05/26/17 12:06 Chloride IV Infused Q12H AMY Infusion Lisinopril 2.5 mg 05/26/17 16:00 05/26/17 16:27 Zestril PO 2.5 mg DAILY AMY Administration Nystatin 1 applic 05/24/17 09:00 05/26/17 13:17 Mycostatin Cream TOP 1 applic BID AMY Administration Nystatin 5 ml 05/26/17 14:00 05/26/17 14:21 Mycostatin PO 5 ml QID AMY Administration Pantoprazole Sodium 40 mg 05/24/17 21:00 05/26/17 11:19 Protonix IV 40 mg BID AMY Administration Sodium Chloride 10 ml 05/24/17 05:48 05/26/17 13:18 Normal Saline Flush 0.9% IVP 10 ml PRN PRN Administration NEEDED PER PROVIDER ORDERS Sodium Chloride 10 ml 05/24/17 06:00 05/26/17 14:23 Normal Saline Flush 0.9% IVP Not Given Q8HR AMY Temazepam 15 mg 05/24/17 23:32 05/26/17 00:51 Restoril PO 15 mg QPM PRN Administration Insomnia - Lab Result Fish Bone Diagrams: 05/26/17 05:19 05/26/17 05:19 - Additional Planning My Orders: My Active Orders 05/26/17 08:12 RT [Oxygen Therapy] [RC] .PRN 05/26/17 09:57 MARICRUZ TEST [RAPID] Stat 05/26/17 16:00 Lisinopril [Zestril] 2.5 mg PO DAILY 05/26/17 21:00 Carvedilol [Coreg] 3.125 mg PO BID 05/27/17 05:00 LIPID Panel [CHEM] Routine 05/27/17 09:00 HEMOGLOBIN AND HEMATOCRIT [HEME] DAILY Spironolactone [Aldactone] 12.5 mg PO DAILY Subjective - Subjective Patient Reports: Other (Feels weak and SOB, this am was very SOB before scopes) Nursing Reports: Other (O2 started by RT when sats dropped to ,89% on R.A. Scope tests showed esophagitis only, per RN, no Report in [facility] yet with results.) Objective Vital Signs: Vital Signs - 24 hr 05/25/17 05/26/17 05/26/17 17:06 01:24 07:37 Temperature 36.8 C 37.0 C 37.1 C Heart Rate 72 Heart Rate [ 73 78 Brachial] Respiratory 16 18 18 Rate Blood Pressure 128/72 Blood Pressure 127/79 135/89 H [Left Brachial artery] Blood Pressure [Right Brachial artery] O2 Saturation 93 90 L 05/26/17 05/26/17 05/26/17 07:58 08:00 08:45 Temperature 37.1 C Heart Rate Heart Rate [ 74 72 Brachial] Respiratory 20 20 Rate Blood Pressure Blood Pressure [Left Brachial artery] Blood Pressure 122/101 H 145/104 H [Right Brachial artery] O2 Saturation 89 L 92 85 L 05/26/17 05/26/17 05/26/17 08:53 10:32 10:37 Temperature Heart Rate Heart Rate [ 67 Brachial] Respiratory 18 Rate Blood Pressure Blood Pressure 131/93 H [Left Brachial artery] Blood Pressure [Right Brachial artery] O2 Saturation 96 98 97 05/26/17 05/26/17 05/26/17 10:42 10:47 10:53 Temperature Heart Rate Heart Rate [ Brachial] Respiratory Rate Blood Pressure Blood Pressure [Left Brachial artery] Blood Pressure [Right Brachial artery] O2 Saturation 97 98 98 05/26/17 05/26/17 05/26/17 11:07 13:54 16:11 Temperature 36.5 C 37.0 C 36.7 C Heart Rate Heart Rate [ 70 69 60 Brachial] Respiratory 20 18 16 Rate Blood Pressure Blood Pressure 146/96 H 131/67 H [Left Brachial artery] Blood Pressure 141/94 H [Right Brachial artery] O2 Saturation 94 93 96 05/26/17 16:38 Temperature Heart Rate Heart Rate [ 70 Brachial] Respiratory Rate Blood Pressure Blood Pressure [Left Brachial artery] Blood Pressure [Right Brachial artery] O2 Saturation 90 L Oxygen O2 Source Nasal cannula I&O (Last 24 Hrs): Intake and Output Totals x24h 05/24/17 05/25/17 05/26/17 23:59 23:59 23:59 Intake Total 4844.167 5272.75 1682.25 Output Total 3150 0195 6255 Balance 5090.120 2213.75 -2071.75 General: Other (Mild respiratory distress with RR 24 and appears fatigued) HEENT: Mucous membr. moist/pink Neck: Supple, No JVD Neuro: Other (Incomplete C6 quadriplegia) Cardiovascular: Regular rate, No murmurs Respiratory: Other (Diminished at both bases, no rales, wheezing or rhonchi) Abdomen: Soft Extremities: Other (Trace pedal edema) - Results Results: Laboratory Results WBC 9.8 x10^3/uL (4.8-10.8) 05/26/17 05:19 RBC 3.54 10^6/uL (4.20-5.40) L 05/26/17 05:19 Hgb 10.9 g/dL (12.0-16.0) L 05/26/17 05:19 Hct 32.2 % (37.0-47.0) L 05/26/17 05:19 MCV 90.7 fL (81.0-99.0) 05/26/17 05:19 MCH 30.7 pg (27.0-31.0) 05/26/17 05:19 MCHC 33.9 g/dL (32.0-36.0) 05/26/17 05:19 RDW 15.1 % (12.0-15.0) H 05/26/17 05:19 Plt Count 162 10^3/uL (130-450) 05/26/17 05:19 MPV 8.7 fL (7.9-10.8) 05/26/17 05:19 Neut # Not Reportable 05/26/17 05:19 Lymph # Not Reportable 05/26/17 05:19 [place] # Not Reportable 05/26/17 05:19 Eos # Not Reportable 05/26/17 05:19 Baso # Not Reportable 05/26/17 05:19 Absolute Nucleated RBC Not Reportable 05/26/17 05:19 Total Counted 100 05/26/17 05:19 Band Neuts % (Manual) 4 % (0-10) 05/26/17 05:19 Reactive Lymphs % (Man) 3 % 05/26/17 05:19 Abnorm Lymph % (Manual) 0 % 05/26/17 05:19 Nucleated RBC % Not Reportable 05/26/17 05:19 Neutrophils # (Manual) 7.0 10^3/uL (1.5-6.6) H 05/26/17 05:19 Lymphocytes # (Manual) 2.4 10^3/uL (1.5-3.5) 05/26/17 05:19 Monocytes # (Manual) 0.4 10^3/uL (0.0-1.0) 05/26/17 05:19 Eosinophils # (Manual) 0.0 10^3/uL (0-0.7) 05/26/17 05:19 Basophils # (Manual) 0.1 10^3/uL (0-0.1) 05/26/17 05:19 Differential Comment MANUAL DIFFERENTIAL 05/26/17 05:19 Platelet Estimate NORMAL (130-450,000) (NORMAL) 05/26/17 05:19 Platelet Morphology NORMAL APPEARANCE (NORMAL) 05/26/17 05:19 RBC Morph Micro Appear NORMAL APPEARANCE (NORMAL) 05/26/17 05:19 PT 13.1 secs (9.9-12.6) H 05/24/17 10:37 INR 1.2 (0.8-1.2) 05/24/17 10:37 Sodium 142 mmol/L (135-145) 05/26/17 05:19 Potassium 3.4 mmol/L (3.5-5.0) L 05/26/17 05:19 Chloride 112 mmol/L (101-111) H 05/26/17 05:19 Carbon Dioxide 21 mmol/L (21-32) 05/26/17 05:19 Anion Gap 9.0 (6-13) 05/26/17 05:19 BUN 24 mg/dL (6-20) H 05/26/17 05:19 Creatinine 1.0 mg/dL (0.4-1.0) 05/26/17 05:19 Estimated GFR (MDRD) 57 (>89) L 05/26/17 05:19 Glucose 92 mg/dL (70-100) 05/26/17 05:19 Calcium 8.5 mg/dL (8.5-10.3) 05/26/17 05:19 Phosphorus 2.4 mg/dL (2.5-4.6) L 05/24/17 06:18 Magnesium 2.0 mg/dL (1.7-2.8) 05/25/17 05:49 Total Bilirubin 0.7 mg/dL (0.2-1.0) 05/25/17 05:49 Direct Bilirubin 0.2 mg/dL (0.1-0.5) 05/25/17 05:49 AST 49 IU/L (10-42) H 05/25/17 05:49 ALT 48 IU/L (10-60) 05/25/17 05:49 Alkaline Phosphatase 82 IU/L (42-121) 05/25/17 05:49 Troponin I < 0.04 ng/mL (<0.49) 05/26/17 13:08 Total Protein 5.3 g/dL (6.7-8.2) L 05/25/17 05:49 Albumin 2.3 g/dL (3.2-5.5) L 05/25/17 05:49 Globulin 3.0 g/dL (2.1-4.2) 05/25/17 05:49 Albumin/Globulin Ratio 0.9 (1.0-2.2) L 05/24/17 06:18 Lipase 11 U/L (22-51) L 05/23/17 17:03 Urine Color YELLOW 05/23/17 17:05 Urine Clarity CLOUDY (CLEAR) 05/23/17 17:05 Urine pH 6.0 PH (5.0-7.5) 05/23/17 17:05 Ur Specific [place] 1.010 (1.002-1.030) 05/23/17 17:05 Urine Protein 30 mg/dL (NEGATIVE) H 05/23/17 17:05 Urine Glucose (UA) NEGATIVE mg/dL (NEGATIVE) 05/23/17 17:05 Urine Ketones NEGATIVE mg/dL (NEGATIVE) 05/23/17 17:05 Urine Occult Blood LARGE (NEGATIVE) H 05/23/17 17:05 Urine Nitrite NEGATIVE (NEGATIVE) 05/23/17 17:05 Urine Bilirubin NEGATIVE (NEGATIVE) 05/23/17 17:05 Urine Urobilinogen 0.2 (NORMAL) E.U./dL (NORMAL) 05/23/17 17:05 Ur Leukocyte Esterase LARGE (NEGATIVE) H 05/23/17 17:05 Urine RBC 11-25 /HPF (0-5) H 05/23/17 17:05 Urine WBC >25 /HPF (0-5) H 05/23/17 17:05 Ur Squamous Epith Cells FEW Squamous (<= Few) 05/23/17 17:05 Urine Bacteria Many /HPF (None Seen) H 05/23/17 17:05 Urine Casts 3-5 RBC Casts /LPF 05/23/17 17:05 Ur Microscopic Review INDICATED 05/23/17 17:05 Urine Culture Comments INDICATED 05/23/17 17:05 Blood Type O POSITIVE 05/23/17 17:03 Blood Type Recheck O POSITIVE 05/24/17 11:05 Antibody Screen NEGATIVE 05/23/17 17:03 Crossmatch IS Only See Detail 05/23/17 17:03
[2017-05-26] MEDS: CARVEDILOL 3.125 MG TABLET PO SCH (21:33)
[2017-05-27 05:42] LABS: CHOLESTEROL 120 mg/dL; HDL CHOLESTEROL 24 mg/dL; LDL CHOLESTEROL,CALCULATED 76 mg/dL; LDL/HDL RATIO 3.2 (<4.4); VLDL CHOLESTEROL 20 mg/dL
[2017-05-27] MEDS: SODIUM CHLORIDE FLUSH 0.9% 10 ML SYRINGE IVP SCH ×3 (06:11→20:41)
[2017-05-27] MEDS: LISINOPRIL 5 MG TABLET PO SCH (08:57)
[2017-05-27] MEDS: SPIRONOLACTONE 25 MG TABLET PO SCH (08:59)
[2017-05-27] MEDS: CARVEDILOL 3.125 MG TABLET PO SCH (08:59)
[2017-05-27] MEDS: NYSTATIN 500000 UNITS/5 ML UDC PO SCH ×4 (09:00→20:41)
[2017-05-27] MEDS: PANTOPRAZOLE 40 MG VIAL IV SCH ×2 (09:00→20:41)
[2017-05-27] MEDS: SODIUM CHLORIDE FLUSH 0.9% 10 ML SYRINGE IVP PRN ×2 (09:02→20:41)
[2017-05-27 09:24] LABS: HGB - HEMOGLOBIN 10.8 g/dL (12.0-16.0)
[2017-05-27 09:31] LABS: HEPATITIS A IGM NON-REACTIVE (NON-REACTIVE); HEPATITIS B CORE ANTIBODY IGM NON-REACTIVE (NON-REACTIVE); HEPATITIS B SURFACE ANTIGEN NON-REACTIVE (NON-REACTIVE); HEPATITIS C ANTIBODY NON-REACTIVE (NON-REACTIVE)
[2017-05-27 09:39] LABS: CALCIUM 8.3 mg/dL (8.5-10.3); CREATININE 0.9 mg/dL (0.4-1.0); MAGNESIUM 1.5 mg/dL (1.7-2.8)
[2017-05-27] MEDS ORDERED: POTASSIUM CHLORIDE 20 MEQ TABLET PO SCH (09:44)
[2017-05-27] MEDS: NYSTATIN CREAM 15 GM TUBE TOP SCH ×2 (09:53→20:41)
[2017-05-27] MEDS: cefTAZidime 2 GM in SODIUM CHLORIDE 0.9% MINIBAG 100 ML IV SCH (10:18)
[2017-05-27] MEDS ORDERED: POTASSIUM CHLOR 10 MEQ/100 ML 10 MEQ/100 ML BAG IV ONE (10:57)
[2017-05-27] MEDS: MAGNESIUM OXIDE 400 MG TABLET PO SCH (10:58)
[2017-05-27] MEDS ORDERED: POTASSIUM CHLOR 10 MEQ/100 ML 10 MEQ/100 ML BAG IV SCH (11:00)
[2017-05-27] MEDS ORDERED: POTASSIUM CHLORIDE 20 MEQ TABLET PO ONE (13:00)
--- NOTE | 2017-05-27 15:06 | PROVIDER PROGRESS NOTE ---
Assessment/Plan - Problem List (1) CHF (congestive heart failure) Qualifiers: Congestive heart failure type: combined Assessment/Plan: Bilateral pleural effusions were seen on CXR yesterday. Bumex iv x 1 produced -2L output. Today's am meds all kicked in together and caused temporary hypotension. Will spread out meds. Pt will need outpt eval for CAD s cause of depressed LVEF, with pharmacologic stress test and referral to a Otolaryngology Rep. She has 3 family members with CAD/CHF. No ASA will be started due to esophagitis. (2) GI bleeding Qualifiers: GI bleed type/associated pathology: unspecified gastrointestinal hemorrhage type Qualified Code(s): K92.2 - Gastrointestinal hemorrhage, unspecified Assessment/Plan: Only esophagitis found as a source of GI bleeding. Will start Iron replacement but also check B12 and Folate levels as she has a high RDW. (3) Urinary tract infection Qualifiers: Urinary tract infection type: catheter-associated UTI Indwelling urinary catheter type: indwelling urethral catheter Encounter type: initial encounter Qualified Code(s): T83.511A - Infection and inflammatory reaction due to indwelling urethral catheter, initial encounter; N39.0 - Urinary tract infection , site not specified; N39.0 - Urinary tract infection, site not specified Assessment/Plan: Continue present antibiotics for a 7-10 day course. (4) Hypokalemia Assessment/Plan: Probably due to marked stool losses with melana. Will replace po and iv an follow labs. - Current Meds Current Meds: Current Medications Generic Name Dose Route Start Last Admin Trade Name Freq PRN Reason Stop Dose Admin Acetaminophen 650 mg 05/23/17 18:03 05/24/17 23:47 Tylenol PO 650 mg Q4HR PRN Administration Pain 1 to 4 Carvedilol 3.125 mg 05/26/17 21:00 05/27/17 08:59 Coreg PO 3.125 mg BID AMY Administration Ceftazidime 2 gm/ Sodium 100 mls @ 100 mls/hr 05/23/17 22:00 05/27/17 11:25 Chloride IV Infused Q12H AMY Infusion Lisinopril 2.5 mg 05/26/17 16:00 05/27/17 08:57 Zestril PO 2.5 mg DAILY AMY Administration Magnesium Oxide 400 mg 05/27/17 11:00 05/27/17 10:58 Mag Ox PO 400 mg DAILYWM AMY Administration Nystatin 1 applic 05/24/17 09:00 05/27/17 09:53 Mycostatin Cream TOP 1 applic BID AMY Administration Nystatin 5 ml 05/26/17 14:00 05/27/17 14:09 Mycostatin PO 5 ml QID AMY Administration Pantoprazole Sodium 40 mg 05/24/17 21:00 05/27/17 09:00 Protonix IV 40 mg BID AMY Administration Sodium Chloride 10 ml 05/24/17 05:48 05/27/17 09:02 Normal Saline Flush 0.9% IVP 30 ml PRN PRN Administration NEEDED PER PROVIDER ORDERS Sodium Chloride 10 ml 05/24/17 06:00 05/27/17 14:04 Normal Saline Flush 0.9% IVP 10 ml Q8HR AMY Administration Spironolactone 12.5 mg 05/27/17 09:00 05/27/17 08:59 Aldactone PO 12.5 mg DAILY AMY Administration Temazepam 15 mg 05/24/17 23:32 05/26/17 21:33 Restoril PO 15 mg QPM PRN Administration Insomnia - Lab Result Fish Bone Diagrams: 05/27/17 09:13 05/27/17 09:13 - Additional Planning My Orders: My Active Orders 05/26/17 16:00 Lisinopril [Zestril] 2.5 mg PO DAILY 05/26/17 21:00 Carvedilol [Coreg] 3.125 mg PO BID 05/27/17 09:00 Spironolactone [Aldactone] 12.5 mg PO DAILY 05/27/17 11:00 Magnesium Oxide [Mag Ox] 400 mg PO DAILYWM 05/28/17 05:00 MAGNESIUM [CHEM] DAILYLAB 05/29/17 05:00 BMP - BASIC METABOLIC PANEL [CHEM] DAILYLAB Subjective - Subjective Patient Reports: Feeling Better Nursing Reports: Other (Less SOB. This early afternoon BP dropped to 80's, HR 67 , Pt needed Trandelenburg for a while.) Objective Vital Signs: Vital Signs - 24 hr 05/26/17 05/26/17 05/26/17 16:11 16:38 21:31 Temperature 36.7 C 96.6 C H Heart Rate [ 60 70 68 Brachial] Respiratory 16 14 Rate Blood Pressure 131/67 H [Left Brachial artery] Blood Pressure 109/54 L [Right Brachial artery] O2 Saturation 96 90 L 96 05/27/17 05/27/17 05/27/17 06:00 08:02 09:55 Temperature 36.6 C 36.5 C Heart Rate [ 68 62 71 Brachial] Respiratory 15 18 20 Rate Blood Pressure [Left Brachial artery] Blood Pressure 137/85 H 107/76 104/66 [Right Brachial artery] O2 Saturation 93 94 98 05/27/17 05/27/17 05/27/17 12:38 12:39 12:40 Temperature 36.5 C Heart Rate [ 67 Brachial] Respiratory 17 Rate Blood Pressure [Left Brachial artery] Blood Pressure 64/27 L 76/40 L 78/53 L [Right Brachial artery] O2 Saturation 97 05/27/17 13:05 Temperature Heart Rate [ 69 Brachial] Respiratory Rate Blood Pressure 86/62 L [Left Brachial artery] Blood Pressure [Right Brachial artery] O2 Saturation 97 Oxygen O2 Source Nasal cannula I&O (Last 24 Hrs): Intake and Output Totals x24h 05/25/17 05/26/17 05/27/17 23:59 23:59 23:59 Intake Total 5272.75 2962.25 1020 Output Total 2475 5230 1000 Balance 2797.75 -2267.75 20 General: Alert, Oriented x3, Other (Appears fatigued) HEENT: Mucous membr. moist/pink Neck: Supple, No JVD Neuro: Other (Unchanged quadriplegia) Cardiovascular: Regular rate, No murmurs Respiratory: Other (Mild resp distress when speaking. Bilat diminished BS at bases.) Abdomen: Soft Extremities: No edema - Results Results: Laboratory Results WBC 9.8 x10^3/uL (4.8-10.8) 05/26/17 05:19 RBC 3.54 10^6/uL (4.20-5.40) L 05/26/17 05:19 Hgb 10.8 g/dL (12.0-16.0) L 05/27/17 09:13 Hct 31.2 % (37.0-47.0) L 05/27/17 09:13 MCV 90.7 fL (81.0-99.0) 05/26/17 05:19 MCH 30.7 pg (27.0-31.0) 05/26/17 05:19 MCHC 33.9 g/dL (32.0-36.0) 05/26/17 05:19 RDW 15.1 % (12.0-15.0) H 05/26/17 05:19 Plt Count 162 10^3/uL (130-450) 05/26/17 05:19 MPV 8.7 fL (7.9-10.8) 05/26/17 05:19 Neut # Not Reportable 05/26/17 05:19 Lymph # Not Reportable 05/26/17 05:19 [place] # Not Reportable 05/26/17 05:19 Eos # Not Reportable 05/26/17 05:19 Baso # Not Reportable 05/26/17 05:19 Absolute Nucleated RBC Not Reportable 05/26/17 05:19 Total Counted 100 05/26/17 05:19 Band Neuts % (Manual) 4 % (0-10) 05/26/17 05:19 Reactive Lymphs % (Man) 3 % 05/26/17 05:19 Abnorm Lymph % (Manual) 0 % 05/26/17 05:19 Nucleated RBC % Not Reportable 05/26/17 05:19 Neutrophils # (Manual) 7.0 10^3/uL (1.5-6.6) H 05/26/17 05:19 Lymphocytes # (Manual) 2.4 10^3/uL (1.5-3.5) 05/26/17 05:19 Monocytes # (Manual) 0.4 10^3/uL (0.0-1.0) 05/26/17 05:19 Eosinophils # (Manual) 0.0 10^3/uL (0-0.7) 05/26/17 05:19 Basophils # (Manual) 0.1 10^3/uL (0-0.1) 05/26/17 05:19 Differential Comment MANUAL DIFFERENTIAL 05/26/17 05:19 Platelet Estimate NORMAL (130-450,000) (NORMAL) 05/26/17 05:19 Platelet Morphology NORMAL APPEARANCE (NORMAL) 05/26/17 05:19 RBC Morph Micro Appear NORMAL APPEARANCE (NORMAL) 05/26/17 05:19 PT 13.1 secs (9.9-12.6) H 05/24/17 10:37 INR 1.2 (0.8-1.2) 05/24/17 10:37 Sodium 139 mmol/L (135-145) 05/27/17 09:13 Potassium 2.4 mmol/L (3.5-5.0) L* 05/27/17 09:13 Chloride 102 mmol/L (101-111) 05/27/17 09:13 Carbon Dioxide 27 mmol/L (21-32) 05/27/17 09:13 Anion Gap 10.0 (6-13) 05/27/17 09:13 BUN 15 mg/dL (6-20) 05/27/17 09:13 Creatinine 0.9 mg/dL (0.4-1.0) 05/27/17 09:13 Estimated GFR (MDRD) 64 (>89) L 05/27/17 09:13 Glucose 138 mg/dL (70-100) H 05/27/17 09:13 Calcium 8.3 mg/dL (8.5-10.3) L 05/27/17 09:13 Phosphorus 2.4 mg/dL (2.5-4.6) L 05/24/17 06:18 Magnesium 1.5 mg/dL (1.7-2.8) L 05/27/17 09:13 Total Bilirubin 0.7 mg/dL (0.2-1.0) 05/25/17 05:49 Direct Bilirubin 0.2 mg/dL (0.1-0.5) 05/25/17 05:49 AST 49 IU/L (10-42) H 05/25/17 05:49 ALT 48 IU/L (10-60) 05/25/17 05:49 Alkaline Phosphatase 82 IU/L (42-121) 05/25/17 05:49 Troponin I < 0.04 ng/mL (<0.49) 05/26/17 13:08 Total Protein 5.3 g/dL (6.7-8.2) L 05/25/17 05:49 Albumin 2.3 g/dL (3.2-5.5) L 05/25/17 05:49 Globulin 3.0 g/dL (2.1-4.2) 05/25/17 05:49 Albumin/Globulin Ratio 0.9 (1.0-2.2) L 05/24/17 06:18 Triglycerides 99 mg/dL (-149) 05/27/17 04:44 Cholesterol 120 mg/dL (-199) 05/27/17 04:44 LDL Cholesterol, Calc 76 mg/dL (-129) 05/27/17 04:44 VLDL Cholesterol 20 mg/dL 05/27/17 04:44 HDL Cholesterol 24 mg/dL (60-) L 05/27/17 04:44 LDL/HDL Ratio 3.2 (<4.4) 05/27/17 04:44 Cholesterol/HDL Ratio 5.0 (<4.4) 05/27/17 04:44 Lipase 11 U/L (22-51) L 05/23/17 17:03 Urine Color YELLOW 05/23/17 17:05 Urine Clarity CLOUDY (CLEAR) 05/23/17 17:05 Urine pH 6.0 PH (5.0-7.5) 05/23/17 17:05 Ur Specific [place] 1.010 (1.002-1.030) 05/23/17 17:05 Urine Protein 30 mg/dL (NEGATIVE) H 05/23/17 17:05 Urine Glucose (UA) NEGATIVE mg/dL (NEGATIVE) 05/23/17 17:05 Urine Ketones NEGATIVE mg/dL (NEGATIVE) 05/23/17 17:05 Urine Occult Blood LARGE (NEGATIVE) H 05/23/17 17:05 Urine Nitrite NEGATIVE (NEGATIVE) 05/23/17 17:05 Urine Bilirubin NEGATIVE (NEGATIVE) 05/23/17 17:05 Urine Urobilinogen 0.2 (NORMAL) E.U./dL (NORMAL) 05/23/17 17:05 Ur Leukocyte Esterase LARGE (NEGATIVE) H 05/23/17 17:05 Urine RBC 11-25 /HPF (0-5) H 05/23/17 17:05 Urine WBC >25 /HPF (0-5) H 05/23/17 17:05 Ur Squamous Epith Cells FEW Squamous (<= Few) 05/23/17 17:05 Urine Bacteria Many /HPF (None Seen) H 05/23/17 17:05 Urine Casts 3-5 RBC Casts /LPF 05/23/17 17:05 Ur Microscopic Review INDICATED 05/23/17 17:05 Urine Culture Comments INDICATED 05/23/17 17:05 Hepatitis A IgM Ab NON-REACTIVE (NON-REACTIVE) 05/24/17 06:18 Hep Bs Antigen NON-REACTIVE (NON-REACTIVE) 05/24/17 06:18 Hep B Core IgM Ab NON-REACTIVE (NON-REACTIVE) 05/24/17 06:18 Hepatitis C Antibody NON-REACTIVE (NON-REACTIVE) 05/24/17 06:18 Hep C Ab Signal/Cutoff 0.00 (<1.00) 05/24/17 06:18 Blood Type O POSITIVE 05/23/17 17:03 Blood Type Recheck O POSITIVE 05/24/17 11:05 Antibody Screen NEGATIVE 05/23/17 17:03 Crossmatch IS Only See Detail 05/23/17 17:03
[2017-05-27] MEDS ORDERED: CARVEDILOL 3.125 MG TABLET PO SCH (16:00)
[2017-05-27] MEDS ORDERED: LISINOPRIL 5 MG TABLET PO SCH (16:00)
[2017-05-27] MEDS ORDERED: BUMETANIDE 1 MG/4 ML VIAL IVP ONE (17:00)
[2017-05-27] MEDS: levoFLOXacin 250 MG TABLET PO SCH (17:03)
[2017-05-27] MEDS ORDERED: IOPAMIDOL-300 100 ML VIAL ONE (18:11)
[2017-05-27] MEDS: FERROUS SULFATE 325 MG TABLET PO SCH (18:58)
[2017-05-27] MEDS ORDERED: IOPAMIDOL-300 100 ML VIAL IVP ONE (20:36)
[2017-05-27] MEDS: TEMAZEPAM 15 MG CAPSULE PO PRN (20:41)
--- NOTE | 2017-05-27 21:20 | CT Preliminary Report ---
Exam: CT CHEST ANGIO (PE) IMPRESSION: 1. No pulmonary emboli. 2. No pathologic mediastinal or hilar adenopathy. 3. Small bilateral effusions. No pneumothorax. Bilateral lower lobe consolidation. Superimposed bronc hitis. [facility] SITE ID: [id number]
--- NOTE | 2017-05-27 21:26 | CT Report ---
EXAM: CT ANGIOGRAM CHEST EXAM DATE: 05/27/2017 08:40 PM. CLINICAL HISTORY: Dyspnea. COMPARISON: 05/26/2017 and 05/24/2017 chest radiograph. TECHNIQUE: Routine helical imaging was performed through the chest in the pulmonary arterial phase. I V Contrast: 80 mL Isovue 300. Reconstructions: Coronal 3-D MIP reconstructions.Sagittal and coronal. In accordance with CT protocol optimization, one or more of the following dose reduction techniques w ere utilized for this exam: automated exposure control, adjustment of mA and/or KV based on patient s ize, or use of iterative reconstructive technique. FINDINGS: Pulmonary Arteries: Diagnostic quality: Adequate through the segmental arteries. No evidence for acute or chronic pulmona ry emboli. RV/LV is within normal limits. There is no interventricular septal bowing. There is no reflux of cont rast material in the IVC. Lungs/Pleura: No pneumothorax. Small right greater than left pleural effusions with lower lobe opacit ies suspicious for infiltrates. No concerning lung mass or nodule identified. Moderate bronchial wall thickening present in both [place]. No endobronchial lesion. Mediastinum: Normal. No cardiac enlargement or adenopathy. Thoracic Aorta: Unremarkable. Upper Abdomen: Unremarkable. Other: Subcutaneous stranding is present particularly in the lower chest wall. No supraclavicular or axillary adenopathy. No osteoblastic or osteolytic lesions are noted. Diffuse degenerative disk disease throughout the tho racic spine. There is fusion at this level of multiple upper thoracic vertebral bodies. IMPRESSION: 1. No pulmonary emboli. 2. No pathologic mediastinal or hilar adenopathy. 3. Small bilateral effusions. No pneumothorax. Bilateral lower lobe consolidation. Superimposed bronc hitis. [facility] Referring Provider Line: [phone] SITE ID: [id number]
[2017-05-28 05:39] LABS: CALCIUM 8.1 mg/dL (8.5-10.3); CREATININE 0.9 mg/dL (0.4-1.0)
[2017-05-28] MEDS: SODIUM CHLORIDE FLUSH 0.9% 10 ML SYRINGE IVP PRN ×4 (06:01→20:53)
[2017-05-28] MEDS: SODIUM CHLORIDE FLUSH 0.9% 10 ML SYRINGE IVP SCH ×3 (06:01→20:53)
[2017-05-28 06:03] LABS: FOLATE 20.17 ng/mL (5.90 - >24.8)
[2017-05-28] MEDS: MAGNESIUM OXIDE 400 MG TABLET PO SCH (08:38)
[2017-05-28] MEDS: FERROUS SULFATE 325 MG TABLET PO SCH ×2 (08:38→17:12)
[2017-05-28] MEDS: PANTOPRAZOLE 40 MG VIAL IV SCH ×2 (08:43→20:53)
[2017-05-28] MEDS: NYSTATIN 500000 UNITS/5 ML UDC PO SCH ×3 (08:52→17:13)
[2017-05-28] MEDS: SPIRONOLACTONE 25 MG TABLET PO SCH (08:52)
[2017-05-28] MEDS: NYSTATIN CREAM 15 GM TUBE TOP SCH ×2 (08:55→21:09)
[2017-05-28] MEDS: levoFLOXacin 250 MG TABLET PO SCH (10:08)
[2017-05-28] MEDS ORDERED: MAGNESIUM SULFATE 2 GRAM 2 GM/50 ML BAG IV ONE (10:08)
[2017-05-28] MEDS: POTASSIUM CHLORIDE 20 MEQ TABLET PO SCH ×2 (10:56→17:13)
[2017-05-28] MEDS: POTASSIUM CHLOR 10 MEQ/100 ML 10 MEQ/100 ML BAG IV SCH ×4 (11:04→15:38)
[2017-05-28] MEDS: ACETAMINOPHEN 325 MG TABLET PO PRN ×2 (15:39→20:53)
[2017-05-28 17:15] LABS: MAGNESIUM 1.9 mg/dL (1.7-2.8)
--- NOTE | 2017-05-28 18:28 | PROVIDER PROGRESS NOTE ---
Assessment/Plan - Problem List (1) CHF (congestive heart failure) Qualifiers: Congestive heart failure type: combined Assessment/Plan: Able to tolerate Room Air oxygen today CTA chest was neg for PE Continue with Carvedilol and Spironolactone, very low doses because her BP runs low. (2) GI bleeding Qualifiers: GI bleed type/associated pathology: unspecified gastrointestinal hemorrhage type Qualified Code(s): K92.2 - Gastrointestinal hemorrhage, unspecified Assessment/Plan: Stable labs FeSO4 started po Continue to onitor H/H (3) Urinary tract infection Qualifiers: Urinary tract infection type: catheter-associated UTI Indwelling urinary catheter type: indwelling urethral catheter Encounter type: initial encounter Qualified Code(s): T83.511A - Infection and inflammatory reaction due to indwelling urethral catheter, initial encounter; N39.0 - Urinary tract infection , site not specified; N39.0 - Urinary tract infection, site not specified Assessment/Plan: Fever recured since on po antibiotics Will continue to monitor WBC, Temp but continue present meds unless she has worsening of these parameters. (4) Hypokalemia Assessment/Plan: Still very depleted this am and needed replacement Continue to check daily BMP (5) Quadriplegia, C5-C7 incomplete Assessment/Plan: Stable neurologic status (6) Herpes simplex esophagitis Assessment/Plan: Since this pathogen is seen often in AIDS patients, will test HIV status I discussed this with Pt and she signed informed consent and does wish to be told her HIV status. Will order blood test - Current Meds Current Meds: Current Medications Generic Name Dose Route Start Last Admin Trade Name Freq PRN Reason Stop Dose Admin Acetaminophen 650 mg 05/23/17 18:03 05/28/17 15:39 Tylenol PO 650 mg Q4HR PRN Administration Pain 1 to 4 Ferrous Sulfate 325 mg 05/27/17 17:00 05/28/17 17:12 Feosol PO 325 mg BIDWM AMY Administration Levofloxacin 750 mg 05/27/17 17:00 05/28/17 10:08 Levaquin PO 750 mg DAILY@1000 AMY Administration Magnesium Oxide 400 mg 05/27/17 11:00 05/28/17 08:38 Mag Ox PO 400 mg DAILYWM AMY Administration Nystatin 1 applic 05/24/17 09:00 05/28/17 08:55 Mycostatin Cream TOP 1 applic BID AMY Administration Pantoprazole Sodium 40 mg 05/24/17 21:00 05/28/17 08:43 Protonix IV 40 mg BID AMY Administration Potassium Chloride 40 meq 05/28/17 10:30 05/28/17 17:13 K-Dur PO 40 meq BIDWM AMY Administration Sodium Chloride 10 ml 05/24/17 05:48 05/28/17 08:48 Normal Saline Flush 0.9% IVP 10 ml PRN PRN Administration NEEDED PER PROVIDER ORDERS Sodium Chloride 10 ml 05/24/17 06:00 05/28/17 15:38 Normal Saline Flush 0.9% IVP 10 ml Q8HR AMY Administration Spironolactone 12.5 mg 05/27/17 09:00 05/28/17 08:52 Aldactone PO 12.5 mg DAILY AMY Administration Temazepam 15 mg 05/24/17 23:32 05/27/17 20:41 Restoril PO 15 mg QPM PRN Administration Insomnia - Lab Result Fish Bone Diagrams: 05/27/17 09:13 05/29/17 04:35 - Additional Planning My Orders: My Active Orders 05/28/17 HIV AB/AG 4TH GEN W/REFLEX [REFLAB] Routine 05/28/17 10:30 Potassium Chloride [K-Dur] 40 meq PO BIDWM 05/28/17 21:00 Carvedilol [Coreg] 1.5625 mg PO QPM 05/28/17 22:00 Acyclovir [Zovirax] 200 mg PO 5XD 05/28/17 Breakfast DIET [Low Sodium Diet] [DIET] 05/29/17 05:00 BMP - BASIC METABOLIC PANEL [CHEM] DAILYLAB Subjective - Subjective Patient Reports: Feeling Better Objective Vital Signs: Vital Signs - 24 hr 05/27/17 05/27/17 05/27/17 18:55 19:46 21:16 Temperature Heart Rate [ Brachial] Respiratory Rate Blood Pressure 90/54 L [Left Brachial artery] Blood Pressure 123/87 H 120/72 [Right Brachial artery] O2 Saturation 97 05/27/17 05/27/17 05/28/17 22:52 23:51 05:01 Temperature 37.5 C 37.7 C H Heart Rate [ 73 70 73 Brachial] Respiratory 20 16 18 Rate Blood Pressure [Left Brachial artery] Blood Pressure 120/69 126/73 130/89 H [Right Brachial artery] O2 Saturation 95 96 97 05/28/17 05/28/17 05/28/17 06:08 08:40 10:30 Temperature 37.3 C 37.5 C Heart Rate [ 73 73 Brachial] Respiratory 18 19 Rate Blood Pressure [Left Brachial artery] Blood Pressure 138/82 H 103/67 [Right Brachial artery] O2 Saturation 95 94 05/28/17 05/28/17 05/28/17 14:28 15:15 16:47 Temperature 37.3 C 37.8 C H 37.5 C Heart Rate [ 69 67 Brachial] Respiratory 19 20 Rate Blood Pressure [Left Brachial artery] Blood Pressure 122/66 148/97 H [Right Brachial artery] O2 Saturation 92 94 Oxygen O2 Source Room air I&O (Last 24 Hrs): Intake and Output Totals x24h 05/26/17 05/27/17 05/28/17 23:59 23:59 23:59 Intake Total 2962.25 2042 2038.667 Output Total 5230 2900 1835 Balance -2267.75 -858 203.667 - Results Results: Laboratory Results WBC 9.8 x10^3/uL (4.8-10.8) 05/26/17 05:19 RBC 3.54 10^6/uL (4.20-5.40) L 05/26/17 05:19 Hgb 10.8 g/dL (12.0-16.0) L 05/27/17 09:13 Hct 31.2 % (37.0-47.0) L 05/27/17 09:13 MCV 90.7 fL (81.0-99.0) 05/26/17 05:19 MCH 30.7 pg (27.0-31.0) 05/26/17 05:19 MCHC 33.9 g/dL (32.0-36.0) 05/26/17 05:19 RDW 15.1 % (12.0-15.0) H 05/26/17 05:19 Plt Count 162 10^3/uL (130-450) 05/26/17 05:19 MPV 8.7 fL (7.9-10.8) 05/26/17 05:19 Neut # Not Reportable 05/26/17 05:19 Lymph # Not Reportable 05/26/17 05:19 [place] # Not Reportable 05/26/17 05:19 Eos # Not Reportable 05/26/17 05:19 Baso # Not Reportable 05/26/17 05:19 Absolute Nucleated RBC Not Reportable 05/26/17 05:19 Total Counted 100 05/26/17 05:19 Band Neuts % (Manual) 4 % (0-10) 05/26/17 05:19 Reactive Lymphs % (Man) 3 % 05/26/17 05:19 Abnorm Lymph % (Manual) 0 % 05/26/17 05:19 Nucleated RBC % Not Reportable 05/26/17 05:19 Neutrophils # (Manual) 7.0 10^3/uL (1.5-6.6) H 05/26/17 05:19 Lymphocytes # (Manual) 2.4 10^3/uL (1.5-3.5) 05/26/17 05:19 Monocytes # (Manual) 0.4 10^3/uL (0.0-1.0) 05/26/17 05:19 Eosinophils # (Manual) 0.0 10^3/uL (0-0.7) 05/26/17 05:19 Basophils # (Manual) 0.1 10^3/uL (0-0.1) 05/26/17 05:19 Differential Comment MANUAL DIFFERENTIAL 05/26/17 05:19 Platelet Estimate NORMAL (130-450,000) (NORMAL) 05/26/17 05:19 Platelet Morphology NORMAL APPEARANCE (NORMAL) 05/26/17 05:19 RBC Morph Micro Appear NORMAL APPEARANCE (NORMAL) 05/26/17 05:19 PT 13.1 secs (9.9-12.6) H 05/24/17 10:37 INR 1.2 (0.8-1.2) 05/24/17 10:37 Sodium 136 mmol/L (135-145) 05/28/17 04:54 Potassium 4.6 mmol/L (3.5-5.0) 05/28/17 16:59 Chloride 98 mmol/L (101-111) L 05/28/17 04:54 Carbon Dioxide 29 mmol/L (21-32) 05/28/17 04:54 Anion Gap 9.0 (6-13) 05/28/17 04:54 BUN 16 mg/dL (6-20) 05/28/17 04:54 Creatinine 0.9 mg/dL (0.4-1.0) 05/28/17 04:54 Estimated GFR (MDRD) 64 (>89) L 05/28/17 04:54 Glucose 109 mg/dL (70-100) H 05/28/17 04:54 Serum Osmolality 274 mOsm/kg (278-305) L 05/24/17 06:18 Calcium 8.1 mg/dL (8.5-10.3) L 05/28/17 04:54 Phosphorus 2.4 mg/dL (2.5-4.6) L 05/24/17 06:18 Magnesium 1.9 mg/dL (1.7-2.8) 05/28/17 16:59 Total Bilirubin 0.7 mg/dL (0.2-1.0) 05/25/17 05:49 Direct Bilirubin 0.2 mg/dL (0.1-0.5) 05/25/17 05:49 AST 49 IU/L (10-42) H 05/25/17 05:49 ALT 48 IU/L (10-60) 05/25/17 05:49 Alkaline Phosphatase 82 IU/L (42-121) 05/25/17 05:49 Troponin I < 0.04 ng/mL (<0.49) 05/26/17 13:08 Total Protein 5.3 g/dL (6.7-8.2) L 05/25/17 05:49 Albumin 2.3 g/dL (3.2-5.5) L 05/25/17 05:49 Globulin 3.0 g/dL (2.1-4.2) 05/25/17 05:49 Albumin/Globulin Ratio 0.9 (1.0-2.2) L 05/24/17 06:18 Triglycerides 99 mg/dL (-149) 05/27/17 04:44 Cholesterol 120 mg/dL (-199) 05/27/17 04:44 LDL Cholesterol, Calc 76 mg/dL (-129) 05/27/17 04:44 VLDL Cholesterol 20 mg/dL 05/27/17 04:44 HDL Cholesterol 24 mg/dL (60-) L 05/27/17 04:44 LDL/HDL Ratio 3.2 (<4.4) 05/27/17 04:44 Cholesterol/HDL Ratio 5.0 (<4.4) 05/27/17 04:44 Lipase 11 U/L (22-51) L 05/23/17 17:03 Vitamin B12 1118 pg/mL (180-914) H 05/28/17 04:54 Folate 20.17 ng/mL (5.90 - >24.8) 05/28/17 04:54 Urine Color YELLOW 05/23/17 17:05 Urine Clarity CLOUDY (CLEAR) 05/23/17 17:05 Urine pH 6.0 PH (5.0-7.5) 05/23/17 17:05 Ur Specific [place] 1.010 (1.002-1.030) 05/23/17 17:05 Urine Protein 30 mg/dL (NEGATIVE) H 05/23/17 17:05 Urine Glucose (UA) NEGATIVE mg/dL (NEGATIVE) 05/23/17 17:05 Urine Ketones NEGATIVE mg/dL (NEGATIVE) 05/23/17 17:05 Urine Occult Blood LARGE (NEGATIVE) H 05/23/17 17:05 Urine Nitrite NEGATIVE (NEGATIVE) 05/23/17 17:05 Urine Bilirubin NEGATIVE (NEGATIVE) 05/23/17 17:05 Urine Urobilinogen 0.2 (NORMAL) E.U./dL (NORMAL) 05/23/17 17:05 Ur Leukocyte Esterase LARGE (NEGATIVE) H 05/23/17 17:05 Urine RBC 11-25 /HPF (0-5) H 05/23/17 17:05 Urine WBC >25 /HPF (0-5) H 05/23/17 17:05 Ur Squamous Epith Cells FEW Squamous (<= Few) 05/23/17 17:05 Urine Bacteria Many /HPF (None Seen) H 05/23/17 17:05 Urine Casts 3-5 RBC Casts /LPF 05/23/17 17:05 Ur Microscopic Review INDICATED 05/23/17 17:05 Urine Culture Comments INDICATED 05/23/17 17:05 Urine Osmolality 215 mOsm/kg (50-1200) 05/23/17 11:11 Hepatitis A IgM Ab NON-REACTIVE (NON-REACTIVE) 05/24/17 06:18 Hep Bs Antigen NON-REACTIVE (NON-REACTIVE) 05/24/17 06:18 Hep B Core IgM Ab NON-REACTIVE (NON-REACTIVE) 05/24/17 06:18 Hepatitis C Antibody NON-REACTIVE (NON-REACTIVE) 05/24/17 06:18 Hep C Ab Signal/Cutoff 0.00 (<1.00) 05/24/17 06:18 Blood Type O POSITIVE 05/23/17 17:03 Blood Type Recheck O POSITIVE 05/24/17 11:05 Antibody Screen NEGATIVE 05/23/17 17:03 Crossmatch IS Only See Detail 05/23/17 17:03
[2017-05-28] MEDS: ACYCLOVIR 200 MG CAPSULE PO SCH ×2 (20:51→23:31)
[2017-05-28] MEDS: TEMAZEPAM 15 MG CAPSULE PO PRN (20:53)
[2017-05-28] MEDS ORDERED: CARVEDILOL 3.125 MG TABLET PO SCH (21:00)
[2017-05-29 04:50] LABS: CALCIUM 8.3 mg/dL (8.5-10.3); CREATININE 0.8 mg/dL (0.4-1.0)
[2017-05-29] MEDS: ACYCLOVIR 200 MG CAPSULE PO SCH ×2 (06:41→09:43)
[2017-05-29] MEDS: SODIUM CHLORIDE FLUSH 0.9% 10 ML SYRINGE IVP SCH (06:42)
[2017-05-29] MEDS: POTASSIUM CHLORIDE 20 MEQ TABLET PO SCH (07:56)
[2017-05-29] MEDS: MAGNESIUM OXIDE 400 MG TABLET PO SCH (07:56)
[2017-05-29] MEDS: FERROUS SULFATE 325 MG TABLET PO SCH (07:56)
[2017-05-29] MEDS: SPIRONOLACTONE 25 MG TABLET PO SCH (09:43)
[2017-05-29] MEDS: levoFLOXacin 250 MG TABLET PO SCH (09:43)
[2017-05-29] MEDS: NYSTATIN CREAM 15 GM TUBE TOP SCH (09:44)
[2017-05-29] MEDS: PANTOPRAZOLE 40 MG VIAL IV SCH (09:44)
[2017-05-29] MEDS ORDERED: BISACODYL 10 MG SUPP PR ONE (10:29)
--- NOTE | 2017-05-29 10:30 | Discharge Plan ---
Discharge Plan Disposition: 01 Home, Self Care Condition: Fair Prescriptions: Acyclovir [Zovirax] 200 mg PO 5XD #40 capsule Carvedilol [Coreg] 1.5625 mg PO QPM #15 tablet Ferrous Sulfate 325 mg PO BID #60 tablet levoFLOXacin [Levaquin] 750 mg PO DAILY@1000 #5 tablet Magnesium Oxide [Mag Ox] 400 mg PO DAILYWM #8 tablet Potassium Chloride [K-Dur] 40 meq PO DAILYWM #8 tablet Spironolactone [Aldactone] 12.5 mg PO DAILY #15 tablet Diet: Low Sodium Activity Restrictions: As before this hospitalization Instruction Topics: Carvedilol tablets, Spironolactone tablets, Esophagitis Additional Instructions or Follow Up instructions: Please take the Levoflaxacin antibiotic for 5 days more Please take the Acyclovir tablets for 8 more days Take the Potassium and Magnesium replacements for 8 days. Take the Iron replacement pills for a month. These cause constipation, so eat foods high in fiber or drink prune juice to help that. Take the Spironolactone water daily in am. Take the tiny tablet of Carvedilol daily at dinnertime. Your diet should be the same, except use less salt and drink less volume of fluids per day. Use your thirst as your guide. You should see your doctor in 10-14 days for follow-up and to have blood tests to check your Potassium and Magnesium levels, kidney function and Hemoglobin. If you see bloody, maroon or black bowel movements, see your doctor sooner. The blood tests that you signed a consent for, should be available in 3-5 days. No Smoking: If you smoke, Please STOP! Call for help.
[2017-05-29] MEDS ORDERED: DOCUSATE SODIUM 250 MG CAPSULE PO SCH (11:00)
[2017-05-29] MEDS ORDERED: SENNA 8.6 MG TABLET PO SCH (11:00)
[2017-05-29 12:31] VITALS: BP 105/54
[2017-05-30 12:31] LABS: HIV AG/AB 4TH GEN NON-REACTIVE (NON-REACTIVE)
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
== END 2017-05-29 13:46 | disposition home or self-care (01) | DRG 698 ==
LOC: EDUNIT# → ED 16:01 → MS3 18:03
PROVIDERS: ADMIT Hospitalist; ATTEND Internal Medicine
PROC: 30233N1 Transfusion of Nonautologous Red Blood Cells into Peripheral Vein, Percutaneous Approach (ICD-10-PCS; 2017-05-25)
PROC: 0DB38ZX Excision of Lower Esophagus, Via Natural or Artificial Opening Endoscopic, Diagnostic (ICD-10-PCS; principal; 2017-05-26 08:30)
PROC: 0DJD8ZZ Inspection of Lower Intestinal Tract, Via Natural or Artificial Opening Endoscopic (ICD-10-PCS; 2017-05-26 08:30)
DX: T83.511A Infection and inflammatory reaction due to indwelling urethral catheter, initial encounter (principal); G82.54 Quadriplegia, C5-C7 incomplete; K92.1 Melena; E87.1 Hypo-osmolality and hyponatremia; B00.89 Other herpesviral infection; I50.40 Unspecified combined systolic (congestive) and diastolic (congestive) heart failure; I42.9 Cardiomyopathy, unspecified; K20.8 Other esophagitis; D50.0 Iron deficiency anemia secondary to blood loss (chronic); E86.0 Dehydration; N39.0 Urinary tract infection, site not specified; B96.89 Other specified bacterial agents as the cause of diseases classified elsewhere; E87.6 Hypokalemia; I95.1 Orthostatic hypotension; I95.2 Hypotension due to drugs; T50.905A Adverse effect of unspecified drugs, medicaments and biological substances, initial encounter; Y92.239 Unspecified place in hospital as the place of occurrence of the external cause; S14.155S Other incomplete lesion at C5 level of cervical spinal cord, sequela; Z82.49 Family history of ischemic heart disease and other diseases of the circulatory system; Z66 Do not resuscitate; Z91.81 History of falling
CPT/HCPCS: 36415; 71010; 71020; 71275; 73565; 74176; 80048; 80053; 80061; 80069; 80074; 80076; 81001; 81003; 82607; 82746; 83690; 83721; 83735; 83930; 83935; 84132; 84484; 85014; 85018; 85025; 85610; 86850; 86900; 86901; 86920; 87077; 87081; 87086; 87389; 88305; 88341; 88342; 93005; 93306; 96365; 96375; 99284

== ENCOUNTER 2017-07-16 10:46 | Outpatient (CLI) | payer BC ==
[2017-07-16 17:40] LABS: CALCIUM 9.4 mg/dL (8.5-10.3); CREATININE 0.8 mg/dL (0.4-1.0)
== END 2017-07-16 10:47 | disposition home or self-care (01) ==
LOC: LAB.F 10:46
PROVIDERS: ATTEND Internal Medicine Cardiovascular Disease
DX: I50.9 Heart failure, unspecified (principal)
CPT/HCPCS: 36415; 80048

== ENCOUNTER 2017-07-30 14:56 | Outpatient (CLI) | payer BC ==
[2017-07-30 17:55] LABS: CALCIUM 9.6 mg/dL (8.5-10.3); CREATININE 0.9 mg/dL (0.4-1.0)
== END 2017-07-30 14:57 | disposition home or self-care (01) ==
LOC: LAB.F 14:56
PROVIDERS: ATTEND Internal Medicine Cardiovascular Disease
DX: I50.9 Heart failure, unspecified (principal)
CPT/HCPCS: 36415; 80048

== ENCOUNTER 2017-08-10 11:42 | Day surgery (SDC) | payer BC ==
[2017-08-10] MEDS ORDERED: LACTATED RINGERS 1,000 ML IV ONE (12:21)
[2017-08-10] MEDS ORDERED: SCOPOLAMINE PATCH TOP ONE (12:33)
[2017-08-10] MEDS ORDERED: LIDO GARGLE 30 ML BOTTLE ONE (13:42)
[2017-08-10] MEDS ORDERED: BENZOCAINE/TETRACAINE/BUTAMBEN SPRAY 56 GM TOP ONE (14:12)
[2017-08-10] MEDS ORDERED: ETOMIDATE 40 MG/20 ML VIAL IVP ONE (14:15)
[2017-08-10] MEDS ORDERED: PROPOFOL 200 MG/20 ML VIAL IVP ONE (14:15)
[2017-08-10 14:51] VITALS: BP 150/100
== END 2017-08-10 11:43 | disposition home or self-care (01) ==
LOC: SDS 11:42
PROVIDERS: ATTEND Surgery
PROC: 0DB48ZX Excision of Esophagogastric Junction, Via Natural or Artificial Opening Endoscopic, Diagnostic (ICD-10-PCS; principal; 2017-08-10 12:45)
DX: K22.10 Ulcer of esophagus without bleeding (principal); B00.9 Herpesviral infection, unspecified; G82.50 Quadriplegia, unspecified; I27.20 Pulmonary hypertension, unspecified; Z99.3 Dependence on wheelchair
CPT/HCPCS: 43239; A9270; J7120

== ENCOUNTER 2017-09-17 13:06 | Outpatient (CLI) | payer BC | END 2017-09-17 13:07 | disposition home or self-care (01) | LOC: DI 13:06 | PROVIDERS: ATTEND Internal Medicine Cardiovascular Disease | DX: I50.9 Heart failure, unspecified (principal) | CPT/HCPCS: 93306 ==

== ENCOUNTER 2017-10-02 11:43 | Observation (INO) | payer BC ==
[2017-10-02] MEDS ORDERED: SODIUM CHLORIDE 0.9% 1,000 ML IV ONE (11:46)
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
[2017-10-02 13:42] LABS: BASOPHILS % (AUTO) 0.5 %; EOSINOPHILS # (AUTO) 0.1 10^3/uL (0.0-0.7); EOSINOPHILS % (AUTO) 2.5 %; HGB - HEMOGLOBIN 10.8 g/dL (12.0-16.0); LYMPHOCYTES # (AUTO) 1.2 10^3/uL (1.5-3.5); LYMPHOCYTES % (AUTO) 27.2 %; MEAN CORPUSCULAR HEMOGLOBIN 31.5 pg (27.0-31.0); MEAN CORPUSCULAR HGB CONC 34.2 g/dL (32.0-36.0); MEAN CORPUSCULAR VOLUME 92.1 fL (81.0-99.0); MEAN PLATELET VOLUME 7.9 fL (7.9-10.8); MONOCYTES # (AUTO) 0.4 10^3/uL (0.0-1.0); MONOCYTES % (AUTO) 9.9 %; NEUTROPHILS # (AUTO) 2.7 10^3/uL (1.5-6.6); NEUTROPHILS % (AUTO) 59.9 %; PLT - PLATELET COUNT 257 10^3/uL (130-450); RED BLOOD COUNT 3.43 10^6/uL (4.20-5.40); RED CELL DISTRIBUTION WIDTH 14.9 % (12.0-15.0); WHITE BLOOD COUNT 4.5 x10^3/uL (4.8-10.8)
[2017-10-02 13:46] LABS: CALCIUM 8.7 mg/dL (8.5-10.3); CREATININE 0.7 mg/dL (0.4-1.0)
--- NOTE | 2017-10-02 13:48 | XRAY Preliminary Report ---
Exam: XR ELBOW 3 VIEW LT IMPRESSION: 1. No acute osseous abnormality. 2. Soft tissue findings suggest olecranon bursitis. [facility] SITE ID: [id number]
--- NOTE | 2017-10-02 13:48 | XRAY Report ---
EXAM: LEFT ELBOW RADIOGRAPHY EXAM DATE: 10/02/2017 01:07 PM. CLINICAL HISTORY: Left elbow swelling with open sore for 2 months. Worsened over the past week. COMPARISON: None. TECHNIQUE: 3 views. FINDINGS: Bones: No acute fracture. No cortical erosion or periosteal reaction. Joints: Mild degenerative change. No dislocation or effusion. Soft Tissues: Soft tissue swelling centered dorsal to the olecranon. No radiopaque foreign body. IMPRESSION: 1. No acute osseous abnormality. 2. Soft tissue findings suggest olecranon bursitis. [facility] Referring Provider Line: [phone] SITE ID: [id number]
[2017-10-02] MEDS ORDERED: VANCOMYCIN INJ 1.5 GM in SODIUM CHLORIDE 0.9% 500 ML IV STA (14:14)
[2017-10-02] MEDS ORDERED: PIPERACILLIN/TAZOBACTAM 3.375 GM in SODIUM CHLORIDE 0.9% MINIBAG 100 ML IV STA (14:17)
[2017-10-02] MEDS ORDERED: PROMETHAZINE 25 MG/1 ML VIAL IM PRN (14:21)
[2017-10-02] MEDS ORDERED: ONDANSETRON 4 MG/2 ML VIAL IVP PRN (14:21)
[2017-10-02] MEDS ORDERED: SODIUM CHLORIDE FLUSH 0.9% 10 ML SYRINGE IVP PRN (14:21)
[2017-10-02] MEDS ORDERED: oxyCODONE 5 MG TABLET PO PRN (14:21)
[2017-10-02] MEDS ORDERED: ZOLPIDEM 5 MG TABLET PO PRN (14:21)
[2017-10-02] MEDS ORDERED: PROCHLORPERAZINE 10 MG/2 ML VIAL IVP PRN (14:21)
[2017-10-02] MEDS ORDERED: ACETAMINOPHEN 325 MG TABLET PO PRN (14:21)
[2017-10-02] MEDS ORDERED: SODIUM CHLORIDE 0.9% 1,000 ML IV SCH (15:00)
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
[2017-10-02] MEDS: SODIUM CHLORIDE FLUSH 0.9% 10 ML SYRINGE IVP SCH (17:48)
[2017-10-02] MEDS: PIPERACILLIN/TAZOBACTAM 3.375 GM in SODIUM CHLORIDE 0.9% MINIBAG 100 ML IV SCH (19:13)
[2017-10-02] MEDS: CARVEDILOL 3.125 MG TABLET PO SCH (21:33)
[2017-10-02] MEDS: LOSARTAN 50 MG TABLET PO SCH (21:33)
[2017-10-02 22:52] LABS: BILIRUBIN,URINE NEGATIVE (NEGATIVE); GLUCOSE, URINE (UA) NEGATIVE (NEGATIVE); KETONES,URINE (UA) NEGATIVE (NEGATIVE); LEUKOCYTE ESTERASE, URINE SMALL (NEGATIVE); NITRITE,URINE POSITIVE (NEGATIVE); OCCULT BLOOD,URINE MODERATE (NEGATIVE); PH,URINE 5.5 PH (5.0-7.5); PROTEIN,URINE TRACE mg/dL (NEGATIVE); UROBILINOGEN,URINE 0.2 (NORMAL) E.U./dL (NORMAL)
[2017-10-02 22:53] LABS: CLARITY,URINE CLOUDY (CLEAR)
[2017-10-02 23:05] LABS: RBC,URINE TNTC /HPF (0-5); SQUAMOUS EPITHELIAL CELL,UR RARE Squamous (<= Few); WBC CLUMPS,URINE PRESENT
[2017-10-02 23:06] LABS: BACTERIA,URINE Many /HPF (None Seen); YEAST,URINE PRESENT
[2017-10-03] MEDS: PIPERACILLIN/TAZOBACTAM 3.375 GM in SODIUM CHLORIDE 0.9% MINIBAG 100 ML IV SCH ×2 (00:04→05:50)
[2017-10-03] MEDS: SODIUM CHLORIDE FLUSH 0.9% 10 ML SYRINGE IVP SCH (01:37)
[2017-10-03] MEDS ORDERED: VANCOMYCIN INJ 1 GM in SODIUM CHLORIDE 0.9% 250 ML IV SCH (02:00)
[2017-10-03 06:34] LABS: BASOPHILS % (AUTO) 0.3 %; EOSINOPHILS # (AUTO) 0.1 10^3/uL (0.0-0.7); EOSINOPHILS % (AUTO) 2.7 %; HGB - HEMOGLOBIN 9.6 g/dL (12.0-16.0); LYMPHOCYTES # (AUTO) 0.2 10^3/uL (1.5-3.5); MEAN CORPUSCULAR HEMOGLOBIN 30.6 pg (27.0-31.0); MEAN CORPUSCULAR HGB CONC 32.9 g/dL (32.0-36.0); MEAN PLATELET VOLUME 7.6 fL (7.9-10.8); MONOCYTES # (AUTO) 0.3 10^3/uL (0.0-1.0); MONOCYTES % (AUTO) 8.2 %; NEUTROPHILS # (AUTO) 2.8 10^3/uL (1.5-6.6); NEUTROPHILS % (AUTO) 82.8 %; PLT - PLATELET COUNT 217 10^3/uL (130-450); RED BLOOD COUNT 3.12 10^6/uL (4.20-5.40); RED CELL DISTRIBUTION WIDTH 14.9 % (12.0-15.0); WHITE BLOOD COUNT 3.4 x10^3/uL (4.8-10.8)
[2017-10-03 06:40] LABS: CALCIUM 8.1 mg/dL (8.5-10.3)
[2017-10-03] MEDS ORDERED: POLYETHYLENE GLYCOL 3350 17 GM PACKET PO SCH (09:00)
[2017-10-03] MEDS ORDERED: SPIRONOLACTONE 25 MG TABLET PO SCH (09:00)
[2017-10-03] MEDS ORDERED: FAMOTIDINE 20 MG TABLET PO SCH (09:00)
[2017-10-03] MEDS ORDERED: ENOXAPARIN 40 MG/0.4 ML SYRINGE SUBQ SCH (09:00)
[2017-10-03] MEDS ORDERED: LOSARTAN 50 MG TABLET PO SCH (09:00)
[2017-10-03] MEDS: LOSARTAN 50 MG TABLET PO SCH (09:35)
[2017-10-03] MEDS: CARVEDILOL 3.125 MG TABLET PO SCH (09:35)
--- NOTE | 2017-10-03 10:22 | Discharge Plan ---
Discharge Plan Disposition: 01 Home, Self Care Condition: Good Prescriptions: Clindamycin [Cleocin] 150 mg PO Q6H 14 Days #56 capsule Diet: Regular Activity Restrictions: Activity as Tolerated Assistance Devices: Wheelchair Additional Instructions or Follow Up instructions: You presented to the ER with swelling, redness and drainage from your left elbow. You were found to have olecranon bursitis with infection. You were given IV antibiotics overnight and appear to be doing well. You will need to take 14 more days of oral antibiotics that have been prescribed to you. Please ensure to keep your elbow in the padded sling. Follow up with your PCP after treatment to ensure the infection has resolved. No Smoking: If you smoke, Please STOP! Call for help. Follow-up with: Theresa Reynolds ARNP [Primary Care Provider] -
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
[2017-10-03 11:11] VITALS: BP 95/48
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
== END 2017-10-03 13:05 | disposition home or self-care (01) ==
LOC: ED 11:43 → OBS 14:48
PROVIDERS: ADMIT Internal Medicine; ATTEND Internal Medicine
DX: M71.122 Other infective bursitis, left elbow (principal); B95.61 Methicillin susceptible Staphylococcus aureus infection as the cause of diseases classified elsewhere; L98.491 Non-pressure chronic ulcer of skin of other sites limited to breakdown of skin; I95.9 Hypotension, unspecified; G82.54 Quadriplegia, C5-C7 incomplete; S14.106S Unspecified injury at C6 level of cervical spinal cord, sequela; I11.0 Hypertensive heart disease with heart failure; I50.9 Heart failure, unspecified; D64.9 Anemia, unspecified; Z96.0 Presence of urogenital implants; Z66 Do not resuscitate
CPT/HCPCS: 29105; 36415; 73080; 80048; 81001; 83605; 85025; 87040; 87070; 87077; 87086; 87181; 87205; 96361; 96365; 96366; 96367; 99218; 99283; 99285; A9270; J3370; 81003